=== PATIENT | male | born 1985 | race Caucasian/White ===

== ENCOUNTER → 2022-05-12 | Outpatient (CLI) | payer MEDICAID, SELFPAY ==
--- NOTE | 2022-05-12 12:50 | RAD_ITS ---
CLINICAL HISTORY: Male, 36 years old. Right shoulder pain following injury. PROCEDURE: ARTHROGRAM - RIGHT SHOULDER CONSENT: The procedure as well as the benefits and possible complications including bleeding and infection were explained to the patient. Informed consent was obtained. FLUOROSCOPY TIME (if supplied): (56 seconds) minutes/seconds Injection Information: 10 cc of dilute MRI contrast. Number of images obtained: 4 TECHNIQUE: (All elements of maximal sterile barrier technique followed, including US elements as applicable) The patient was in the supine position. The overlying skin was prepped and draped in the usual sterile fashion. Following local anesthetic application and under direct fluoroscopic guidance, a 22-gauge spinal needle was placed into the shoulder joint. 2 cc of ISOVUE-300 was injected for confirmation. Following this, 10 cc of dilute MRI contrast was injected. The patient tolerated the procedure well. MRI will follow. RAD/Arthrogram Shoulder w/ MRI IMPRESSION: Successful right shoulder arthrogram for MRI imaging. The patient tolerated the procedure well. Electronically Signed: Fredy Bernabe MD at 13:48 EDT ,
--- NOTE | 2022-05-12 13:05 | MRI_ITS ---
STUDY: MRI RIGHT SHOULDER REASON FOR EXAM: Male, 36 years old. R SHOULDER PAIN TECHNIQUE: Standardized fat and water weighted pulse sequences were obtained in all 3 orthogonal planes. COMPARISON: X-ray 12/30/2021 FINDINGS: Mild supraspinatus and infraspinatus tendinosis and peritendinitis as with a 1 x 1 cm concealed interstitial delamination tear of the distal mid supraspinatus tendon at the footprint. Normal subscapularis tendon. Normal teres minor tendon. Normal supraspinatus muscle. Normal infraspinatus muscle. Normal subscapularis muscle. Normal teres minor muscle. Normal glenohumeral articulation. There is a cortical erosion at the insertion of the infraspinatus tendon. Normal biceps labral complex. Normal intracapsular long biceps tendon. Normal labrum. Normal capsulo- ligamentous complex. Normal rotator interval. Normal acromioclavicular articulation. There is a Type II morphology (curved), with a neutral orientation. There is no subacromial-subdeltoid bursal fluid. Normal visualized coracohumeral and coracoacromial ligaments. Normal quadrilateral space. Normal axillary space. Normal deltoid muscle. Normal trapezius muscle. MRI/Upper Ext Jt Only W/Contrast IMPRESSION: Mild supraspinatus and infraspinatus tendinosis and peritendinitis as with a 1 x 1 cm concealed interstitial delamination tear of the distal mid supraspinatus tendon at the footprint. No muscular atrophy. Electronically Signed: Brannon Oreilly MD at 11:31 EDT ,
== END | disposition home or self-care (01) ==
LOC: RAD 12:08
PROVIDERS: Referring Provider Nurse Practitioner; Visit Provider Nurse Practitioner
DX: M24.811 Other specific joint derangements of right shoulder, not elsewhere classified (principal)
CPT/HCPCS: 23350; 73222; 77002; A9575; Q9967

== ENCOUNTER 2023-08-16 10:47 | Observation (INO) | payer BC, SELFPAY ==
[2023-08-16] VITALS (7 sets, daily range): BP systolic 142–173; BP diastolic 75–117; PULSE 73–86; RESP 14–18; TEMP 36.4–36.8; O2SAT 97–100; BMI 29.2; BMI 28.7
--- NOTE | 2023-08-16 11:13 | CT_ITS ---
STUDY: CT ABDOMEN AND PELVIS WITHOUT CONTRAST REASON FOR EXAM: Male, 37 years old. Right flank pain RADIATION DOSAGE (If Supplied By Facility): CTDIvol = ( 9.74 ) mGy, DLP = ( 498.62 ) mGycm TECHNIQUE: Transaxial images were obtained from the dome of the diaphragm to the symphysis pubis without oral contrast, and without intravenous contrast. Sagittal and coronal images were reconstructed. Individualized dose optimization techniques were used for this CT. COMPARISON: None. FINDINGS: Mild degree of dependent bibasilar atelectasis. The visualized portions of the heart are within normal limits. Normal liver. Normal gallbladder and extrahepatic biliary system. Normal spleen. Normal pancreas. Normal bilateral adrenal glands. Mild degree of right hydronephrosis and a right hydroureter due to a 2.9 mm calculus in the midportion of the right ureter. Normal left kidney. There is a small hiatal hernia. Normal small intestine. Normal colon. The appendix is visualized and appears normal. There is scattered atherosclerotic calcification of the abdominal aorta, without a demonstrated aneurysm. Normal inferior vena cava. Normal retroperitoneum. Normal urinary bladder. There is a small umbilical hernia containing fat. Normal osseous structures. CT/Abdomen/Pelvis without Cont IMPRESSION: 2.9 mm calculus in the midportion of right ureter causing right hydronephrosis and right hydroureter. Electronically Signed: Fredy Bernabe MD at 12:08 [facility] ,
--- NOTE | 2023-08-16 11:14 | EX.ED.DYSGE1 ---
HPI History of Present Illness Chief Complaint: Flank Pain Detail of Chief Complaint: Right flank pain Informant: patient Narrative Narrative: Patient presents emergency department with complaint of right-sided flank pain. Patient states the pain started initially last evening and was more mildly became more severe today. Pain radiates from his back. He had some urinary frequency. He denies hematuria and has had some mild dysuria this morning. Patient thinks he might be passing a kidney stone although he is never passed one before. Patient denies nausea or vomiting. He denies fever. He denies diarrhea. Currently rates pain an 8 out of 10. [facility] Medical History Arthritis Hx of compression fracture of spine Hx of fracture of pelvis Impingement syndrome of right shoulder Internal derangement of right shoulder Right shoulder strain Shoulder pain Strain of right rotator cuff capsule Tendon injury Home Medications NK 08/16/23 [History Last Taken Unknown] Allergy/AdvReac Type Severity Reaction Status Date / Time No Known Allergies Allergy Verified 08/16/23 10:47 Social History Smoking Status: Current every day smoker tobacco type: cigarettes alcohol intake: current Alcohol type: beer ROS ROS ED Review of Systems ROS Unobtainable: other Constitutional Constitutional ED: Reports lethargy; Denies chills, fever(s), sweats or weight loss Eyes Eyes: Denies blurry vision, change in vision or diplopia ENT ENT ED: Denies rhinorrhea or sore throat Cardiovascular Cardiovascular: Denies chest pain, orthopnea or racing heartbeat Respiratory/Chest Respiratory/Chest: Denies cough, dyspnea, dyspnea on exertion, orthopnea or sputum Gastrointestinal Gastrointestinal: Reports abdominal pain; Denies diarrhea, nausea or vomiting Genitourinary Genitourinary ED: Denies dysuria, hematuria or urinary frequency Musculoskeletal Musculoskeletal: Reports back pain; Denies arthralgias, myalgias or neck pain Integumentary Denies abscess, Abrasions or rash Neurologic Neurologic: Denies headache(s) or weakness Psychiatric Psychiatric: Denies anxiety, depression or suicidal thoughts Endocrine Endocrinology: Denies polydipsia, polyphagia or polyuria Hematologic/Lymphatic Hematologic/Lymphatic: Denies easy bleeding, easy bruising or lymphadenopathy Allergic/Immunologic Allergic/Immunologic ED: Denies mouth swelling, tongue swelling or urticaria EXAM Physical Exam Const Vital Signs: 08/16/23 10:48 08/16/23 13:32 08/16/23 13:38 Temperature 98.2 F Temperature Source Temporal Pulse Rate 84 73 73 Respiratory Rate 14 16 18 Blood Pressure 173/117 H 150/115 H 150/115 H Blood Pressure Mean 135 126 126 Pulse Ox 99 97 97 Oxygen Delivery Method Room Air Nasal Cannula 08/16/23 13:39 Temperature 98.2 F Temperature Source Temporal Pulse Rate 73 Respiratory Rate 18 Blood Pressure 150/115 H Blood Pressure Mean 126 Pulse Ox 97 Oxygen Delivery Method Room Air Positive well nourished and well developed General Appearance ED: well developed and NAD HEENT Reports TM's clear and moist mucous membranes normocephalic and atraumatic; Negative for trauma or tenderness Tympanic Membrane ED: Yes TM's clear Eyes PERRL and EOMs intact bilaterally General Eye ED: Negative for pale conjunctiva or scleral icterus Neck no lymphadenopathy, supple and no JVD General: Negative for tenderness Chest Wall inspection of chest normal and palpation of chest normal Chest: Negative for tenderness Resp normal respiratory effort and clear to auscultation bilaterally Effort and Inspection: Negative for respiratory distress or pain with movement Auscultation: Negative for rhonchi, wheezes or diminished lung sounds Cardio regular rate, regular rhythm, S1 normal heart sound, S2 normal heart sound and no murmurs Peripheral Pulses: pulses 2+ throughout GI normal to inspection, nondistended, normoactive bowel sounds, soft to palpation, non-distended and no masses GI Narrative: Tenderness to right lower quadrant with some guarding. He has CVA tenderness on the right. There is no rebound, rigidity, or purulent signs. No mass palpated. Back/Spine no CVA tenderness and no thoracic nor lumbar tenderness Extremity normal to inspection General Extremety ED: Negative for edema General Extremity: Negative for edema Neuro oriented x3, CN's II-XII intact bilaterally, no sensory deficits noted and gait normal Sensorium / Orientation: awake, alert, oriented to person, oriented to place and oriented to time Motor Exam: strength 5/5 throughout and strength abnormal Psych mental status grossly normal Skin no rashes or lesions noted and no wounds MDM MDM MDM Narrative Medical decision making narrative: Patient presents with severe right-sided flank pain concerning for kidney stone. Patient also complains some the dysuria. IV line established. He was medicated with Toradol as well as Zofran and Dilaudid 1 mg IV. He had good pain relief with that. CBC with differential obtained showed white count of 12.7 with hemoglobin 14.7 and platelet count of 309. Chemistries unremarkable. Urinalysis was positive for nitrites as well as 500 excite esterase and greater than 100 WBCs and +3 bacteria. Urine culture was sent. CT of the abdomen pelvis without contrast obtained showed a right-sided ureteral lithiasis that radiology felt was 2.9 mm however on my measurement was closer to 5 mm. I discussed case with urology Dr. Pro jones who also looked at the CT scan and agrees that the stone likely closer to 5 or 6 mm. We will admit patient for possible stenting tomorrow. Will start on Rocephin IV. Lab Data Attestation: I reviewed the patient's lab results. Labs: Laboratory Results - last 24 hr 08/16/23 08/16/23 11:06 12:25 WBC 12.7 H RBC 4.67 Hgb 14.7 Hct 43.5 MCV 93.1 MCH 31.5 MCHC 33.8 RDW Std Deviation 44.0 H RDW Coeff of Rani 12.9 Plt Count 309 MPV 9.9 Immature Gran % (Auto) 0.400 Neut % (Auto) 79.7 H Lymph % (Auto) 11.0 L [place] % (Auto) 7.8 Eos % (Auto) 0.7 Baso % (Auto) 0.4 Absolute Neuts (auto) 10.1 H Absolute Lymphs (auto) 1.39 Nucleated RBC % 0 Sodium 138 Potassium 3.6 Chloride 105 Carbon Dioxide 31.0 Anion Gap 2 L BUN 12 Creatinine 1.05 Estim Creat Clear Calc 94.45 Est GFR (MDRD) Af Amer 101 Est GFR (MDRD) Non-Af 83 BUN/Creatinine Ratio 11.4 Glucose 144 H Calcium 9.1 Urine Color Yellow Urine Clarity Cloudy Urine pH 6.0 Ur Specific [place] 1.020 Urine Protein 30 H Urine Glucose (UA) Normal Urine Ketones Negative Urine Occult Blood 150 H Urine Nitrite Positive H Urine Bilirubin Negative Urine Urobilinogen Normal Ur Leukocyte Esterase 500 H Urine RBC 5-10 SEEN Urine WBC >100 SEEN Ur Squamous Epith Cells 0-5 SEEN Urine Bacteria 3+ Urine Mucus 0 SEEN Radiography Diagnostic Testing: Clinical Impression(s) from Imaging Studies Abdomen/Pelvis CT 08/16/23 11:13 IMPRESSION: 2.9 mm calculus in the midportion of right ureter causing right hydronephrosis and right hydroureter. Electronically Signed: Fredy Bernabe MD at 12:08 EST , Discharge Plan Dx/Rx/DC Orders Clinical Impression: Urolithiasis, Acute UTI, Leukocytosis Disposition Disposition: Acute Care Hospital [facility]
[2023-08-16] MEDS: Ondansetron 4 MG/2 ML Vial IV (11:20)
[2023-08-16] MEDS: Ketorolac 30 MG/ML Syringe IV (11:20)
[2023-08-16] MEDS: HYDROmorphone 1 MG/ML Syringe IV ×2 (11:20→15:57)
[2023-08-16] MEDS: 0.9% Normal Saline (1000mL) 1,000 ML 1000 ML IV (11:20)
[2023-08-16 11:33] LABS: Absolute Lymphocyte Count 1.39 X10^3/uL (0.83-4.51); Absolute Neutrophil Count 10.1 X10^3/uL (2.0-7.7); Basophil# 0.05 X10^3/uL; Basophil% 0.4 % (0-1); Eosinophil# 0.09 X10^3/uL; Eosinophils% 0.7 % (0-5); Hematocrit 43.5 % (40-54); Hemoglobin 14.7 g/dL (13.0-16.5); Lymphocyte # 1.39 X10^3/ul (0.83-4.51); Mean Corp Hgb Conc 33.8 g/dL (32-36); Mean Corpuscular Hgb 31.5 pg (27.0-32.0); Mean Corpuscular Volume 93.1 fL (80-94); Mean Platelet Vol. 9.9 fl (6.2-12.0); Monocyte# 0.99 X10^3/uL; Monocyte% 7.8 % (0-10); NRBC Flagged by Analyzer 0 % (0-5); Neutrophil % 79.7 % (47-70); Platelet Count 309 K/mm3 (150-450); RBC Distribution Width CV 12.9 % (11.6-14.6); Red Blood Count 4.67 M/mm3 (4.6-6.2); White Blood Count 12.7 K/mm3 (4.4-11.0)
[2023-08-16 11:38] LABS: Anion Gap 2 (5-15); BUN 12 mg/dL (7-18); BUN/Creat Ratio 11.4 RATIO (10-20); Calcium,Total 9.1 mg/dL (8.5-10.1); Chloride 105 mmol/L (98-107); Creatinine, Serum 1.05 mg/dL (0.70-1.30); EST Glomerular Filtration Rate 83 mL/min (>60); Est Glom Filt Rate - Afr Amer 101 mL/min (>60); Estimated Creatinine Clearance 94.45 ml/min; Glucose 144 mg/dL (74-106); Potassium 3.6 mmol/L (3.5-5.1); Sodium Level 138 mmol/L (136-145)
--- OUTSIDE RECORDS SUMMARY | 2023-08-16 12:09 | XMS RPT_ITS | CCD ---
Author Name Unknown Address [address] [place] [address] Organization [facility] Care Team Providers Care Redye Hand Name Role Phone Carolin Bañueols Unavailable Unavailable Wing Issa Attending Unavailable Day Combs Attending Unavailable Sallie Curran Primary Care Provider ZANE MARIA Attending Unavailable Unavailable Primary Care Provider Unavailabl e Medications Current Medications Medication Drug Class(es) Dates Sig (Normalized) Sig (Original) acetaminophen 325 mg / HYDROcodone bitartrate 5 mg oral tablet (1 source) Opioid Agonist Start: 06-06-2019 End: 06-09-2019 take 1 tablet by mouth every four hours as needed for pain, then take 1 tablet by mouth as needed for pain HYDROcodone-acetam inophen (NORCO) 5-325 MG per tablet Indications: Closed nondisplaced fracture of middle phalanx of lesser toe of left foot, initial encounter Take 1 tablet by mouth every 4 hours as needed for Pain for up to 3 days. Intended supply: 3 days. Take lowest dose possible to manage pain 10 tablet 0 06/06/2019 06/09/2019 Active amoxicillin 875 mg oral tablet (1 source) Penicillin-class Antibacterial Start: 09-06-2022 End: 09-16-2022 take 1 tablet by mouth every twelve hours amoxicillin (AMOXIL) 875 mg tablet Indications: Toothaches , Swelling of right side of face Take 1 tablet by mouth every 12 hours for 10 days. 20 tablet 0 09/06/2022 09/16/2022 Active Completed/Discontinued Medications Medication Drug Class(es) Dates Sig (Normalized) Sig (Original) acetaminophen 325 mg / oxyCODONE hydrochloride 5 mg oral tablet (1 source) Opioid Agonist Start: 04-28-2016 End: 06-06-2019 take 1 tablet by mouth every four hours as needed for pain oxyCODONE-acetami nophen (PERCOCET) 5-325 MG per tablet Indications: Chronic midline low back pain with sciatica, sciatica laterality unspecified Take 1 tablet by mouth every 4 hours as needed for Pain 120 tablet 0 04/28/2016 06/06/2019 Discontinued (LIST CLEANUP) hydroCHLOROthiazide 25 mg / lisinopril 20 mg oral tablet (1 source) Thiazide Diuretic, Angiotensin Converting Enzyme Inhibitor Start: 03-08-2016 End: 06-06-2019 take 1 tablet by mouth once daily lisinopril-hydroc hlorothiazide (PRINZIDE;ZESTORE TIC) 20-25 MG per tablet Indications: Benign essential HTN Take 1 tablet by mouth daily 30 tablet 3 03/08/2016 06/06/2019 Discontinued ibuprofen 800 mg oral tablet (1 source) Nonsteroidal Anti-inflammatory Drug Start: 09-06-2022 take 1 tablet by mouth three times daily as needed for pain ibuprofen (MOTRIN) 800 mg tablet Indications: Toothaches , Swelling of right side of face Take 1 tablet by mouth three times daily as needed for pain. 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] Onset: 05-06-2015 05-06-2015 Chronic Other skin disorders (1 source) Localized swelling, mass and lump, head; Translations: [Swelling of right side of face] Onset: 09-06-2022 Episodic Other skin disorders (1 source) Facial swelling ; Translations: [Localized swelling, mass and lump, head] Episodic Substance-related disorders (1 source) Other stimulant abuse, uncomplicated; Translations: [F15.10 - Other stimulant abuse, uncomplicated] Onset: 12-11-2017 Chronic Unclassified (2 sources) 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 09-06-2022 19:28-0500 Body weight 88.45 kg Zane Maria MD Work Phone: [facility] 09-06-2022 19:28-0500 Diastolic blood pressure 110 mm[Hg] Zane Maria MD Work Phone: [facility] 09-06-2022 19:28-0500 Heart rate 114 /min Zane Maria MD Work Phone: [facility] 09-06-2022 19:28-0500 Respiratory rate 16 /min Zane Maria MD Work Phone: [facility] 09-06-2022 19:28-0500 SaO2% (BldA) [Mass fraction] 99 % Zane Maria MD Work Phone: [facility] 09-06-2022 19:28-0500 Systolic blood pressure 149 mm[Hg] Zane Maria MD Work Phone: [facility] 06-06-2019 09:04-0400 Body Temperature 98.71 [degF] [facility] [place] 06-06-2019 09:04-0400 BP Diastolic 101 mm[Hg] [facility] [place] 06-06-2019 09:04-0400 BP Systolic 139 mm[Hg] [facility] [place] 06-06-2019 09:04-0400 Pulse (Heart Rate) 89 /min [facility] [place] 06-06-2019 09:04-0400 Pulse Oximetry 99 % [facility]-2019 09:04-0400 Respiratory Rate 16 /min [facility] 07:53-0400 BMI (Body Mass Index) 27.72 kg/m2 [facility] 06-06-2019 07:53-0400 Body weight 83.92 kg Edison [place], [place] Encounters Encounter Date Encounter Type Care Provider Facility Start: 09-06-2022 End: 09-06-2022 ambulatory ZANE MARIA Facility:[id number] Start: 09-06-2022 End: 09-06-2022 Patient encounter procedure Zane Valerie Maria Work Phone: [facility] Procedures Date Procedure Procedure Detail Performing Clinician Start: 06-06-2019 Radex foot complete minimum 3 views Edison Osborn Work Phone: Plan of Treatment Date Care Activity Detail Author Start: 09-03-2022 DEPRESSION ASSESSMENT DEPRESSION ASSESSMENT [facility] Start: 05-04-2022 Influenza vaccination INFLUENZA (#1) [facility] Start: 05-04-2019 Influenza vaccination Flu vaccine (#1) [place], [place] Start: 2018 LIPID SCREEN LIPID SCREEN [facility] Start: 2002 DTaP/Tdap/Td vaccine (1 - Tdap) DTaP/Tdap/Td vaccine (1 - Tdap) [place], [place] Start: 2002 Urine microalbumin profile DTAP,TDAP,TD (1 - Tdap) [facility] Start: 2001 HEPATITIS C SCREENING HEPATITIS C SCREENING [facility] Start: 2001 HIV SCREENING HIV SCREENING [facility] Start: 1998 HIV screen HIV screen [place], [place] Start: 1996 Varicella Vaccine (1 of 2 - 13+ 2-dose series) Varicella Vaccine (1 of 2 - 13+ 2-dose series) [place], [place] Start: 1989 PNEUMOCOCCAL (1 - PCV) PNEUMOCOCCAL (1 - PCV) [facility] Start: 02-25-1984 COVID-19 VACCINE (#1) COVID-19 VACCINE (#1) [facility] Start: 1983 HEPATITIS B (1 of 3 - 3-dose series) HEPATITIS B (1 of 3 - 3-dose series) [facility] Payers Date Payer Category Payer Unknown [id number] 2022 Unknown TAM BLUE CARD PPO OOS [id number] 2022-Present [phone] [address] [place] [address] PPO [id number] 2017 Unknown [id number] Self-pay Unknown [id number] Unknown [id number] Social History Date Type Detail Facility Start: 06-06-2019 End: 09-06-2022 Tobacco smoking status NHIS Current every day smoker [facility] Start: 06-06-2019 [facility] intake [facility] At Not on file [facility] History of tobacco use Cigarette Smoker [facility] Start: 09-06-2022 Tobacco use and exposure User of smokeless tobacco [facility] History of tobacco use Chews Tobacco [facility] Start: 09-06-2022 Alcohol intake Ex-drinker (finding) [facility] Start: 1985 Sex Assigned At Male [facility] Progress note 09-06-2022 Note Date & Type Note Facility 09-06-2022 Note HNO ID: [id number] Author: Zane Maria MD Service: ? Author Type: Physician Type: Progress Notes Filed: 09/06/2022 8:16 PM Note Text: Lucy Clay is a 37 year old male who presents with Facial Swelling (C/O right side face swelling and pain. Started yesterday. ) HPI patient 37-year-old male who presented to the [facility] the evening with a complaint of the right facial swelling and right tooth ache the symptoms started yesterday and patient concerning coming for further evaluation treatment. History reviewed. No pertinent past medical history. There is no problem list on file for this patient. Current Outpatient Medications Medication Sig Dispense Refill amoxicillin (AMOXIL) 875 mg tablet Take 1 tablet by mouth every 12 hours for 10 days. 20 tablet 0 ibuprofen (MOTRIN) 800 mg tablet Take 1 tablet by mouth three times daily as needed for pain. 20 tablet 0 No current facility-administered medications for this visit. Social History Tobacco Use Smoking status: Every Day Types: Cigarettes Smokeless tobacco: Current Types: Chew Substance Use Topics Alcohol use: Not Currently Drug use: Never Alcohol Use: Not Currently Tobacco Use: Types: Cigarettes, Chew History reviewed. No pertinent family history. Review of Systems Constitutional: Negative for chills, fever and malaise/fatigue. Respiratory: Negative for shortness of breath. Cardiovascular: Negative for palpitations. Gastrointestinal: Negative for abdominal pain, nausea and vomiting. Neurological: Negative for headaches. BP 149/110 Pulse 114 Temp (Src) 98.5 (Oral) Resp 16 Wt 195 lb (88.5kg) SpO2 99% Physical Exam Vitals and nursing note reviewed. Constitutional: General: He is not in acute distress. Appearance: Normal appearance. HENT: Mouth/Throat: Mouth: Mucous membranes are moist. Pharynx: Oropharynx is clear. Comments: Right upper molar decay and tender with touch and right face swelling Cardiovascular: Rate and Rhythm: Regular rhythm. Heart sounds: Normal heart sounds. Pulmonary: Breath sounds: Normal breath sounds. Musculoskeletal: Cervical back: Normal range of motion and neck supple. Lymphadenopathy: Cervical: No cervical adenopathy. Neurological: Mental Status: He is alert. ASSESSMENT/PLAN: 1. Toothaches - ICD9: 525.9, ICD10: K08.89 (primary diagnosis) Complications of the disease were discussed with the patient. Start amoxicillin 875 mg 1 twice a day and ibuprofen 800 mg 1 3 times daily as needed for pain and swelling discussed side effects of the medication with the patient Instructed to follow up with dentist in 4 to 5 days for recheck - AMOXICILLIN 875 MG TABLET - IBUPROFEN 800 MG TABLET 2. Swelling of right side of face - ICD9: 784.2, ICD10: R22.0 Complications of the disease were discussed with the patient. - AMOXICILLIN 875 MG TABLET - IBUPROFEN 800 MG TABLET Zane Maria MD [facility] History of Present illness Narrative 09-06-2022 Zane Padilla MD Candace - 09/06/2022 8:13 PM EST Note Date & Type Note Facility 09-06-2022 History of Presen t illness Narrative Lucy Clay is a 37 year old male who presents with Facial Swelling (C/O right side face swelling and pain. Started yesterday. ) HPI patient 37-year-old male who presented to the [facility] the evening with a complaint of the right facial swelling and right tooth ache the symptoms started yesterday and patient concerning coming for further evaluation treatment. History reviewed. No pertinent past medical history. There is no problem list on file for this patient. Current Outpatient Medications Medication Sig Dispense Refill amoxicillin (AMOXIL) 875 mg tablet Take 1 tablet by mouth every 12 hours for 10 days. 20 tablet 0 ibuprofen (MOTRIN) 800 mg tablet Take 1 tablet by mouth three times daily as needed for pain. 20 tablet 0 No current facility-administered medications for this visit. Social History Tobacco Use Smoking status: Every Day Types: Cigarettes Smokeless tobacco: Current Types: Chew Substance Use Topics Alcohol use: Not Currently Drug use: Never Alcohol Use: Not Currently Tobacco Use: Types: Cigarettes, Chew History reviewed. No pertinent family history. Review of Systems Constitutional: Negative for chills, fever and malaise/fatigue. Respiratory: Negative for shortness of breath. Cardiovascular: Negative for palpitations. Gastrointestinal: Negative for abdominal pain, nausea and vomiting. Neurological: Negative for headaches. BP 149/110 Pulse 114 Temp (Src) 98.5 (Oral) Resp 16 Wt 195 lb (88.5kg) SpO2 99% Physical Exam Vitals and nursing note reviewed. Constitutional: General: He is not in acute distress. Appearance: Normal appearance. HENT: Mouth/Throat: Mouth: Mucous membranes are moist. Pharynx: Oropharynx is clear. Comments: Right upper molar decay and tender with touch and right face swelling Cardiovascular: Rate and Rhythm: Regular rhythm. Heart sounds: Normal heart sounds. Pulmonary: Breath sounds: Normal breath sounds. Musculoskeletal: Cervical back: Normal range of motion and neck supple. Lymphadenopathy: Cervical: No cervical adenopathy. Neurological: Mental Status: He is alert. ASSESSMENT/PLAN: 1. Toothaches - ICD9: 525.9, ICD10: K08.89 (primary diagnosis) Complications of the disease were discussed with the patient. Start amoxicillin 875 mg 1 twice a day and ibuprofen 800 mg 1 3 times daily as needed for pain and swelling discussed side effects of the medication with the patient Instructed to follow up with dentist in 4 to 5 days for recheck - AMOXICILLIN 875 MG TABLET - IBUPROFEN 800 MG TABLET 2. Swelling of right side of face - ICD9: 784.2, ICD10: R22.0 Complications of the disease were discussed with the patient. - AMOXICILLIN 875 MG TABLET - IBUPROFEN 800 MG TABLET Zane Maria MD documented in this encounter [facility] Evaluation note Note Date & Type Note Facility documented in this encounter 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 * Toe Fracture (Tanzanian) documented in this encounter Assessments Diagnosis Closed nondisplaced fracture of middle phalanx of lesser toe of left foot, initial encounter- Primary Additional Source Comments (unrecognized sect ion and content) No Status Records FoundNo Status Records FoundNo Status Records FoundNo Status Records Found INFORMATION SOURCE (unrecogn ized section and content) DATE CREATED AUTHOR AUTHOR'S ORGANIZ ATION 09/26/2018 [facility] [place] DATE CREATED AUTHOR AUTHOR'S ORGANIZ ATION 07/04/2019 [facility] DATE CREATED AUTHOR AUTHOR'S ORGANIZ ATION 09/06/2022 [facility] Reason for Visit (unrecogniz ed section and content) Reason Comments Facial Swelling C/O right side face swelling and pain. Started yesterday. Source Comments (unrecognize d section and content) In the event this informatio n is protected by the Federal Confidentiality of Alcohol and Drug Abuse Patient Records regulations: The Federal rules restrict any use of the information to criminally investigate or prosecute any alcohol or drug abuse patient.[facility] FOR RECORDS PERTAINING TO PATIENTS WHO ARE OR HAVE BEEN ENROLLED IN A CHEMICAL DEPENDENCY/SUBSTANCEABUSE PROGRAM, SOME INFORMATION MAY BE OMITTED. This clinical summary was aggregated from multiple sources. Caution should be exercised in using it in the provision of clinical care. This summary normalizes information from multiple sources, and as a consequence, information in this document may materially change the coding, format and clinical context of patient data. In addition, data may be omitted in some cases. CLINICAL DECISIONS SHOULD BE BASED ON THE PRIMARY CLINICAL RECORDS. [facility]. provides no warranty or guarantee of the accuracy or completeness of information in this document.
[2023-08-16 12:32] LABS: Mucous, Urine 0 SEEN /hpf (<or=2+)
[2023-08-16 12:35] LABS: Color, Urine Yellow (Yellow); Glucose, Dipstick Normal (Normal); Ketone-Dipstick Negative (Negative); Leukocyte Esterase-Dipstick 500 /ul (Negative); Nitrite-Dipstick Positive (Negative); Occult Blood-Urine 150 /ul (Negative); Protein-Dipstick 30 mg/dl (Negative); Urine Bilirubin Dipstick Negative (Negative); Urine Clarity Cloudy (Clear); Urine Urobilinogen Normal (Normal)
[2023-08-16 12:43] LABS: Bacteria 3+ /hpf (None Seen); White Blood Cells >100 SEEN /hpf (0-5)
[2023-08-16 12:44] LABS: Red Blood Cells-Urine 5-10 SEEN /hpf (0-5); Squamous Epithelial Cells - UA 0-5 SEEN /hpf (0-5)
[2023-08-16] MEDS: 0.9% Normal Saline (1000mL) 1,000 ML 150 ML IV ×2 (13:01→18:26)
[2023-08-16] MEDS: Ceftriaxone 1 GM/50 ML BAG IV (13:02)
--- NOTE | 2023-08-16 13:37 | PCM.HP.STD ---
HPI - General General Date of Admission: 08/16/23 Date of Service: 08/16/23 HPI Narrative LUCY CLAY, is a 37 M who presents to ER with a 5 -6 mm stone in the Right mid ureter wll admit because looks infected and risk of sepsis if no intervention add on tomorrow for a cysto right stent placement. [facility] Medical History Arthritis Hx of compression fracture of spine Hx of fracture of pelvis Impingement syndrome of right shoulder Internal derangement of right shoulder Right shoulder strain Shoulder pain Strain of right rotator cuff capsule Tendon injury Allergy/AdvReac Type Severity Reaction Status Date / Time No Known Allergies Allergy Verified 08/16/23 10:47 Social History Smoking Status: Current every day smoker tobacco type: cigarettes alcohol intake: current Alcohol type: beer ROS Constitutional Constitutional: Denies chills, fever(s) or malaise Eyes Eyes: Denies blurry vision or change in vision ENT HEENT: Reports none Cardiovascular Cardiovascular: Denies chest pain or palpitations Respiratory/Chest Respiratory/Chest: Denies cough or shortness of breath with exertion Gastrointestinal Gastrointestinal: Denies abdominal pain, constipation or diarrhea Musculoskeletal Musculoskeletal: Denies back pain, joint stiffness or joint swelling Integumentary Integumentary: Denies dry skin, jaundice, lesions or rash Neurologic Neurologic: Denies confusion, syncope or weakness Psychiatric Psychiatric: Reports none; Denies anxiety or depression Endocrine Endocrinology: Denies excessive sweating, fatigue or flushing Hematologic/Lymphatic Hematologic/Lymphatic: Denies anemia, easy bleeding or easy bruising Vital Signs Vital Signs Vital Signs: 08/16/23 10:48 08/16/23 13:32 Temperature 98.2 F Temperature Source Temporal Pulse Rate 84 73 Respiratory Rate 14 16 Blood Pressure 173/117 H 150/115 H Blood Pressure Mean 135 126 Pulse Ox 99 97 Oxygen Delivery Method Room Air Nasal Cannula Weight Weight: 89.8 kg Body Mass Index (BMI) 29.2 Physical Exam Const alert and oriented x3 General Appearance: cooperative HEENT normocephalic, head/scalp atraumatic, EAC's normal and TM's normal bilaterally Eyes PERRL and EOMs intact bilaterally Pupil: sluggish Neck no lymphadenopathy, supple and no JVD General: trachea midline Lymph Lymphatic: no lymphadenopathy noted, lymphedema and lymphadenopathy Resp normal respiratory effort, normal air movement and clear to auscultation bilaterally Cardio regular rate, regular rhythm and peripheral pulses 2+ throughout GI soft to palpation, non-tender and non-distended Extremity normal capillary refill and no clubbing, cyanosis or edema General Extremity: no tenderness to palpation of joints or extremities Skin no rashes or lesions noted General Skin Exam: turgor normal Lesions: no lesions Rashes: no rashes Neuro CN's II-XII intact bilaterally Speech: speech normal Motor Exam: strength 5/5 throughout; Negative for general weakness Psych thought process normal, cooperative and affect normal Appearance: appropriate Results Lab / Micro Data 08/16/23 11:06 08/16/23 11:06 Labs: Laboratory Results - last 24 hr 08/16/23 11:06: WBC 12.7 H, RBC 4.67, Hgb 14.7, Hct 43.5, MCV 93.1, MCH 31.5, MCHC 33.8, RDW Std Deviation 44.0 H, RDW Coeff of Rani 12.9, Plt Count 309, MPV 9.9, Immature Gran % (Auto) 0.400, Neut % (Auto) 79.7 H, Lymph % (Auto) 11.0 L, Stewart % (Auto) 7.8, Eos % (Auto) 0.7, Baso % (Auto) 0.4, Absolute Neuts (auto) 10.1 H, Absolute Lymphs (auto) 1.39, Nucleated RBC % 0, Sodium 138, Potassium 3.6, Chloride 105, Carbon Dioxide 31.0, Anion Gap 2 L, BUN 12, Creatinine 1.05, Estim Creat Clear Calc 94.45, Est GFR (MDRD) Af Amer 101, Est GFR (MDRD) Non-Af 83, BUN/Creatinine Ratio 11.4, Glucose 144 H, Calcium 9.1 08/16/23 12:25: Urine Color Yellow, Urine Clarity Cloudy, Urine pH 6.0, Ur Specific [place] 1.020, Urine Protein 30 H, Urine Glucose (UA) Normal, Urine Ketones Negative, Urine Occult Blood 150 H, Urine Nitrite Positive H, Urine Bilirubin Negative, Urine Urobilinogen Normal, Ur Leukocyte Esterase 500 H, Urine RBC 5-10 SEEN, Urine WBC >100 SEEN, Ur Squamous Epith Cells 0-5 SEEN, Urine Bacteria 3+, Urine Mucus 0 SEEN Imagaing Radiology Impression Abdomen/Pelvis CT 08/16/23 11:13 IMPRESSION: 2.9 mm calculus in the midportion of right ureter causing right hydronephrosis and right hydroureter. Electronically Signed: Fredy Bernabe MD at 12:08 EST , Assessment & Plan Assessment/Plan (1) Urolithiasis: PLAN: check KUB (2) Acute UTI: PLAN: plan for Right cysto and stent placement tomorrow (3) Leukocytosis:
--- OUTSIDE RECORDS SUMMARY | 2023-08-16 16:58 | XMS RPT_ITS | CCD ---
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 Onset: 04-20-2018 Past or Other Problems Problem Classification Problem Date Documented Da te Episodic/Chronic Spondylosis; intervertebral disc disorders; other back problems (1 source) Low back pain; Translations: [Lumbago] Onset: 05-06-2015 05-06-2015 Episodic Results Test Name Value Interpretation Reference Range Facil ity Vital Signs Date Time Vital Sign Value Performing Clinician Facility 09-06-2022 19:28-0500 Body temperature 98.49 [degF] Zane Maria MD Work Phone: [facility] 09-06-2022 19:28-0500 Body weight 88.45 kg Zane Maria MD Work Phone: [facility] 09-06-2022 19:28-0500 Diastolic blood pressure 110 mm[Hg] Zane Maria MD Work Phone: [facility] 09-06-2022 19:28-0500 Heart rate 114 /min Zane Maria MD Work Phone: [facility] 09-06-2022 19:28-0500 Respiratory rate 16 /min Zane Maria MD Work Phone: [facility] 09-06-2022 19:28-0500 SaO2% (BldA) [Mass fraction] 99 % Zane Maria MD Work Phone: [facility] 09-06-2022 19:28-0500 Systolic blood pressure 149 mm[Hg] Zane Maria MD Work Phone: [facility] 06-06-2019 09:04-0400 Body Temperature 98.71 [degF] [facility] 06-06-2019 09:04-0400 BP Diastolic 101 mm[Hg] [facility] [place] 06-06-2019 09:04-0400 BP Systolic 139 mm[Hg] [facility] [place] 06-06-2019 09:04-0400 Pulse (Heart Rate) 89 /min [facility] 06-06-2019 09:04-0400 Pulse Oximetry 99 % [facility] 06-06-2019 09:04-0400 Respiratory Rate 16 /min [facility] 06-06-2019 07:53-0400 BMI (Body Mass Index) 27.72 kg/m2 Edison [facility] [place] 06-06-2019 07:53-0400 Body weight 83.92 kg Edison [place], [place] Encounters Encounter Date Encounter Type Care Provider Facility Start: 09-06-2022 End: 09-06-2022 ambulatory ZANE MARIA Facility:[id number] Start: 09-06-2022 End: 09-06-2022 Patient encounter procedure Zane Valerie Maria Work Phone: [facility] Procedures Date Procedure Procedure Detail Performing Clinician Start: 06-06-2019 Radex foot complete minimum 3 views Edison Osborn Work Phone: Plan of Treatment Date Care Activity Detail Author Start: 09-03-2022 DEPRESSION ASSESSMENT DEPRESSION ASSESSMENT [facility] Start: 05-04-2022 Influenza vaccination INFLUENZA (#1) [facility] Start: 05-04-2019 Influenza vaccination Flu vaccine (#1) [place], [place] Start: 2018 LIPID SCREEN LIPID SCREEN [facility] Start: 2002 DTaP/Tdap/Td vaccine (1 - Tdap) DTaP/Tdap/Td vaccine (1 - Tdap) [place], [place] Start: 2002 Urine microalbumin profile DTAP,TDAP,TD (1 - Tdap) [facility] Start: 2001 HEPATITIS C SCREENING HEPATITIS C SCREENING [facility] Start: 2001 HIV SCREENING HIV SCREENING [facility] Start: 1998 HIV screen HIV screen [place], [place] Start: 1996 Varicella Vaccine (1 of 2 - 13+ 2-dose series) Varicella Vaccine (1 of 2 - 13+ 2-dose series) [place], [place] Start: 1989 PNEUMOCOCCAL (1 - PCV) PNEUMOCOCCAL (1 - PCV) [facility] Start: 02-25-1984 COVID-19 VACCINE (#1) COVID-19 VACCINE (#1) [facility] Start: 1983 HEPATITIS B (1 of 3 - 3-dose series) HEPATITIS B (1 of 3 - 3-dose series) [facility] Payers Date Payer Category Payer Unknown [id number] 2022 Unknown TAM BLUE CARD PPO OOS [id number] 2022-Present [phone] [address] [place] [address] PPO [id number] 2017 Unknown [id number] Self-pay Unknown [id number] Unknown [id number] Social History Date Type Detail Facility Start: 06-06-2019 End: 09-06-2022 Tobacco smoking status NHIS Current every day smoker [facility] Start: 06-06-2019 Alcohol intake [facility] Sex Assigned At Not on file [facility] History of tobacco use Cigarette Smoker [facility] Start: 09-06-2022 Tobacco use and exposure User of smokeless tobacco [facility] History of tobacco use Chews Tobacco [facility] Start: 09-06-2022 Alcohol intake Ex-drinker (finding) [facility] Start: 1985 Sex Assigned At Male [facility] Progress note 09-06-2022 Note Date & Type Note Facility 09-06-2022 Note HNO ID: [id number] Author: Zane Maria MD Service: ? Author [...] IBUPROFEN 800 MG TABLET Zane Maria MD [facility] History of Present illness Narrative 09-06-2022 Zane [...] Zane Maria MD documented in this encounter [facility] Evaluation note Note Date & Type Note Facility documented in this encounter [facility] Summary Purpose Family History No Family History Records FoundNo Family History Records FoundNo Family History Records FoundNo Family History Records Found Advance Directives Documents on File Type Date Recorded Patient Candy Roller Expl anation Advance Directives and Living Will Power of Senior Sustainability Consultant Discharge Instructions * Attachments The following attachments cannot be sent through Care Everywhere. * Toe Fracture (Dominican) documented in this encounter Assessments Diagnosis Closed nondisplaced fracture of middle phalanx of lesser toe of left foot, initial encounter- Primary Additional Source Comments (unrecognized sect ion and content) No Status Records FoundNo Status Records FoundNo Status Records FoundNo Status Records Found INFORMATION SOURCE (unrecogn ized section and content) DATE CREATED AUTHOR AUTHOR'S ORGANIZ ATION 09/26/2018 [facility] Mara ntcole [place] DATE CREATED AUTHOR AUTHOR'S ORGANIZ ATION 07/04/2019 [facility] DATE CREATED AUTHOR AUTHOR'S ORGANIZ ATION 09/06/2022 [facility] Reason for Visit (unrecogniz [...] or prosecute any alcohol or drug abuse patient.[facility] FOR RECORDS PERTAINING TO PATIENTS WHO [...] BE BASED ON THE PRIMARY CLINICAL RECORDS. [facility]. provides no warranty or guarantee of the accuracy or completeness of information in this document.
[2023-08-16] MEDS: 0.9% Normal Saline (1000mL) 1,000 ML 50 ML IV (19:55)
--- OUTSIDE RECORDS SUMMARY | 2023-08-16 20:01 | XMS RPT_ITS | CCD ---
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 Onset: 04-20-2018 Past or Other Problems Problem Classification Problem Date Documented Da te Episodic/Chronic Spondylosis; intervertebral disc disorders; other back problems (1 source) Low back pain; Translations: [Lumbago] Onset: 05-06-2015 05-06-2015 Episodic Results Test Name Value Interpretation Reference Range Facil ity Vital Signs Date Time Vital Sign Value Performing Clinician Facility 09-06-2022 19:28-0500 Body temperature 98.49 [degF] Zane Maria MD Work Phone: [facility] 09-06-2022 19:28-0500 Body weight 88.45 kg Zane Maria MD Work Phone: [facility] 09-06-2022 19:28-0500 Diastolic blood pressure 110 mm[Hg] Zane Maria MD Work Phone: [facility] 09-06-2022 19:28-0500 Heart rate 114 /min Zane Maria MD Work Phone: [facility] 09-06-2022 19:28-0500 Respiratory rate 16 /min Zane Maria MD Work Phone: [facility] 09-06-2022 19:28-0500 SaO2% (BldA) [Mass fraction] 99 % Zane Maria MD Work Phone: [facility] 09-06-2022 19:28-0500 Systolic blood pressure 149 mm[Hg] Zane Maria MD Work Phone: [facility] 06-06-2019 09:04-0400 Body Temperature 98.71 [degF] [facility] 06-06-2019 09:04-0400 BP Diastolic 101 mm[Hg] [facility] [place] 06-06-2019 09:04-0400 BP Systolic 139 mm[Hg] [facility] [place] 06-06-2019 09:04-0400 Pulse (Heart Rate) 89 /min [facility] 06-06-2019 09:04-0400 Pulse Oximetry 99 % [facility] 06-06-2019 09:04-0400 Respiratory Rate 16 /min [facility] 06-06-2019 07:53-0400 BMI (Body Mass Index) 27.72 kg/m2 [facility] [place] 06-06-2019 07:53-0400 Body weight 83.92 kg Edison [place], [place] Encounters Encounter Date Encounter Type Care Provider Facility Start: 09-06-2022 End: 09-06-2022 ambulatory ZANE MARIA Facility:[id number] Start: 09-06-2022 End: 09-06-2022 Patient encounter procedure Zane Valerie Maria Work Phone: [facility] Procedures Date Procedure Procedure Detail Performing Clinician Start: 06-06-2019 Radex foot complete minimum 3 views Edison Osborn Work Phone: Plan of Treatment Date Care Activity Detail Author Start: 09-03-2022 DEPRESSION ASSESSMENT DEPRESSION ASSESSMENT [facility] Start: 05-04-2022 Influenza vaccination INFLUENZA (#1) [facility] Start: 05-04-2019 Influenza vaccination Flu vaccine (#1) [place], [place] Start: 2018 LIPID SCREEN LIPID SCREEN [facility] Start: 2002 DTaP/Tdap/Td vaccine (1 - Tdap) DTaP/Tdap/Td vaccine (1 - Tdap) [place], [place] Start: 2002 Urine microalbumin profile DTAP,TDAP,TD (1 - Tdap) [facility] Start: 2001 HEPATITIS C SCREENING HEPATITIS C SCREENING [facility] Start: 2001 HIV SCREENING HIV SCREENING [facility] Start: 1998 HIV screen HIV screen [place], [place] Start: 1996 Varicella Vaccine (1 of 2 - 13+ 2-dose series) Varicella Vaccine (1 of 2 - 13+ 2-dose series) [place], [place] Start: 1989 PNEUMOCOCCAL (1 - PCV) PNEUMOCOCCAL (1 - PCV) [facility] Start: 02-25-1984 COVID-19 VACCINE (#1) COVID-19 VACCINE (#1) [facility] Start: 1983 HEPATITIS B (1 of 3 - 3-dose series) HEPATITIS B (1 of 3 - 3-dose series) [facility] Payers Date Payer Category Payer Unknown [id number] 2022 Unknown TAM BLUE CARD PPO OOS [id number] 2022-Present [phone] [address] [place] [address] PPO [id number] 2017 Unknown [id number] Self-pay Unknown [id number] Unknown [id number] Social History Date Type Detail Facility Start: 06-06-2019 End: 09-06-2022 Tobacco smoking status NHIS Current every day smoker [facility] Start: 06-06-2019 Alcohol intake [facility] Sex Assigned At Not on file [facility] History of tobacco use Cigarette Smoker [facility] Start: 09-06-2022 Tobacco use and exposure User of smokeless tobacco [facility] History of tobacco use Chews Tobacco [facility] Start: 09-06-2022 Alcohol intake Ex-drinker (finding) [facility] Start: 1985 Sex Assigned At Male [facility] Progress note 09-06-2022 Note Date & Type Note Facility 09-06-2022 Note HNO ID: [id number] Author: Zane Maria MD Service: ? Author [...] IBUPROFEN 800 MG TABLET Zane Maria MD [facility] History of Present illness Narrative 09-06-2022 Zane [...] Zane Maria MD documented in this encounter [facility] Evaluation note Note Date & Type Note Facility documented in this encounter [facility] Summary Purpose Family History No Family History Records FoundNo Family History Records FoundNo Family History Records FoundNo Family History Records Found Advance Directives Documents on File Type Date Recorded Patient Laster Hand Expl anation Advance Directives and Living Will Power of Trimming Press Operator Discharge Instructions * Attachments The following attachments cannot be sent through Care Everywhere. * Toe Fracture (Filipino) documented in this encounter Assessments Diagnosis Closed nondisplaced fracture of middle phalanx of lesser toe of left foot, initial encounter- Primary Additional Source Comments (unrecognized sect ion and content) No Status Records FoundNo Status Records FoundNo Status Records FoundNo Status Records Found INFORMATION SOURCE (unrecogn ized section and content) DATE CREATED AUTHOR AUTHOR'S ORGANIZ ATION 09/26/2018 [facility] Mara ntcole [place] DATE CREATED AUTHOR AUTHOR'S ORGANIZ ATION 07/04/2019 [facility] DATE CREATED AUTHOR AUTHOR'S ORGANIZ ATION 09/06/2022 [facility] Reason for Visit (unrecogniz [...] or prosecute any alcohol or drug abuse patient.[facility] FOR RECORDS PERTAINING TO PATIENTS WHO ARE [...] BE BASED ON THE PRIMARY CLINICAL RECORDS. [facility] [employer] [facility]. provides no warranty or guarantee of the accuracy or completeness of information in this document.
--- OUTSIDE RECORDS SUMMARY | 2023-08-16 20:01 | XMS RPT_ITS | CCD ---
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 Onset: 04-20-2018 Past or Other Problems Problem Classification Problem Date Documented Da te Episodic/Chronic Spondylosis; intervertebral disc disorders; other back problems (1 source) Low back pain; Translations: [Lumbago] Onset: 05-06-2015 05-06-2015 Episodic Results Test Name Value Interpretation Reference Range Facil ity Vital Signs Date Time Vital Sign Value Performing Clinician Facility 09-06-2022 19:28-0500 Body temperature 98.49 [degF] Zane Maria MD Work Phone: [facility] 09-06-2022 19:28-0500 Body weight 88.45 kg Zane Maria MD Work Phone: [facility] 09-06-2022 19:28-0500 Diastolic blood pressure 110 mm[Hg] Zane Maria MD Work Phone: [facility] 09-06-2022 19:28-0500 Heart rate 114 /min Zane Maria MD Work Phone: [facility] 09-06-2022 19:28-0500 Respiratory rate 16 /min Zane Maria MD Work Phone: [facility] 09-06-2022 19:28-0500 SaO2% (BldA) [Mass fraction] 99 % Zane Maria MD Work Phone: [facility] 09-06-2022 19:28-0500 Systolic blood pressure 149 mm[Hg] Zane Maria MD Work Phone: [facility] 06-06-2019 09:04-0400 Body Temperature 98.71 [degF] [facility], [place] 06-06-2019 09:04-0400 BP Diastolic 101 mm[Hg] [facility] , [place] 06-06-2019 09:04-0400 BP Systolic 139 mm[Hg] [facility] [place] 06-06-2019 09:04-0400 Pulse (Heart Rate) 89 /min [facility], [place] 06-06-2019 09:04-0400 Pulse Oximetry 99 % [facility] [place] 06-06-2019 09:04-0400 Respiratory Rate 16 /min [facility] 06-06-2019 07:53-0400 BMI (Body Mass Index) 27.72 kg/m2 Edison [facility] [place] 06-06-2019 07:53-0400 Body weight 83.92 kg Edison [place], [place] Encounters Encounter Date Encounter Type Care Provider Facility Start: 09-06-2022 End: 09-06-2022 ambulatory ZANE MARIA Facility:[id number] Start: 09-06-2022 End: 09-06-2022 Patient encounter procedure Zane Valerie Maria Work Phone: [facility] Procedures Date Procedure Procedure Detail Performing Clinician Start: 06-06-2019 Radex foot complete minimum 3 views Edison Osborn Work Phone: Plan of Treatment Date Care Activity Detail Author Start: 09-03-2022 DEPRESSION ASSESSMENT DEPRESSION ASSESSMENT [facility] Start: 05-04-2022 Influenza vaccination INFLUENZA (#1) [facility] Start: 05-04-2019 Influenza vaccination Flu vaccine (#1) [place], [place] Start: 2018 LIPID SCREEN LIPID SCREEN [facility] Start: 2002 DTaP/Tdap/Td vaccine (1 - Tdap) DTaP/Tdap/Td vaccine (1 - Tdap) [place], [place] Start: 2002 Urine microalbumin profile DTAP,TDAP,TD (1 - Tdap) [facility] Start: 2001 HEPATITIS C SCREENING HEPATITIS C SCREENING [facility] Start: 2001 HIV SCREENING HIV SCREENING [facility] Start: 1998 HIV screen HIV screen [place], [place] Start: 1996 Varicella Vaccine (1 of 2 - 13+ 2-dose series) Varicella Vaccine (1 of 2 - 13+ 2-dose series) [place], [place] Start: 1989 PNEUMOCOCCAL (1 - PCV) PNEUMOCOCCAL (1 - PCV) [facility] Start: 02-25-1984 COVID-19 VACCINE (#1) COVID-19 VACCINE (#1) [facility] Start: 1983 HEPATITIS B (1 of 3 - 3-dose series) HEPATITIS B (1 of 3 - 3-dose series) [facility] Payers Date Payer Category Payer Unknown [id number] 2022 Unknown TAM BLUE CARD PPO OOS [id number] 2022-Present [phone] [address] [place] [address] PPO [id number] 2017 Unknown [id number] Self-pay Unknown [id number] Unknown [id number] Social History Date Type Detail Facility Start: 06-06-2019 End: 09-06-2022 Tobacco smoking status NHIS Current every day smoker [facility] Start: 06-06-2019 Alcohol intake No [facility] Assigned At Not on file [facility] History of tobacco use Cigarette Smoker [facility] Start: 09-06-2022 Tobacco use and exposure User of smokeless tobacco [facility] History of tobacco use Chews Tobacco [facility] Start: 09-06-2022 Alcohol intake Ex-drinker (finding) [facility] Start: 1985 Sex Assigned At Male [facility] Progress note 09-06-2022 Note Date & Type Note Facility 09-06-2022 Note HNO ID: [id number] Author: Zane Maria MD Service: ? Author [...] Zane Maria MD 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 [facility] [employer] [facility]. provides no warranty or guarantee of the accuracy or completeness of information in this document.
[2023-08-16] MEDS: Ketorolac 15 MG/ML Vial IV (20:04)
[2023-08-16] MEDS: 0.9% Saline Lock 10 ML Syringe IV ×2 (20:04→21:43)
[2023-08-16] MEDS: Morphine 2 MG/ML Syringe IV (21:43)
[2023-08-16] MEDS: Cefazolin 1 GM/50 ML BAG IV (21:46)
[2023-08-17] VITALS (11 sets, daily range): BP systolic 143–164; BP diastolic 102–120; PULSE 92–116; RESP 12–20; TEMP 36.8–37.9; O2SAT 95–100
[2023-08-17] MEDS: Ketorolac 15 MG/ML Vial IV ×3 (05:14→19:34)
[2023-08-17] MEDS: Cefazolin 1 GM/50 ML BAG IV ×2 (05:15→13:39)
[2023-08-17 06:41] LABS: Absolute Lymphocyte Count 1.14 X10^3/uL (0.83-4.51); Absolute Neutrophil Count 9.8 X10^3/uL (2.0-7.7); Basophil# 0.05 X10^3/uL; Basophil% 0.4 % (0-1); Eosinophil# 0.19 X10^3/uL; Eosinophils% 1.6 % (0-5); Hematocrit 40.5 % (40-54); Hemoglobin 13.6 g/dL (13.0-16.5); Lymphocyte # 1.14 X10^3/ul (0.83-4.51); Lymphocyte % 9.3 % (19-41); Mean Corp Hgb Conc 33.6 g/dL (32-36); Mean Corpuscular Hgb 31.8 pg (27.0-32.0); Mean Corpuscular Volume 94.6 fL (80-94); Mean Platelet Vol. 9.8 fl (6.2-12.0); Monocyte# 0.94 X10^3/uL; Monocyte% 7.7 % (0-10); NRBC Flagged by Analyzer 0 % (0-5); Neutrophil # 9.81 X10^3/uL (2.7-7.7); Neutrophil % 80.4 % (47-70); Platelet Count 271 K/mm3 (150-450); RBC Distribution Width CV 12.9 % (11.6-14.6); RBC Distribution Width SD 44.4 fl (35.1-43.9); Red Blood Count 4.28 M/mm3 (4.6-6.2); White Blood Count 12.2 K/mm3 (4.4-11.0)
[2023-08-17 07:03] LABS: Anion Gap 2 (5-15); BUN 9 mg/dL (7-18); BUN/Creat Ratio 9.5 RATIO (10-20); Calcium,Total 8.3 mg/dL (8.5-10.1); Chloride 105 mmol/L (98-107); Creatinine, Serum 0.95 mg/dL (0.70-1.30); EST Glomerular Filtration Rate 94 mL/min (>60); Est Glom Filt Rate - Afr Amer 113 mL/min (>60); Glucose 112 mg/dL (74-106); Potassium 4.1 mmol/L (3.5-5.1); Sodium Level 138 mmol/L (136-145)
[2023-08-17] MEDS: Morphine 2 MG/ML Syringe IV ×2 (08:38→18:45)
--- NOTE | 2023-08-17 10:20 | RAD_ITS ---
STUDY: X-RAY - ABDOMEN/PELVIS REASON FOR EXAM: Male, 37 years old. kidney stone placement TECHNIQUE: Single AP view of the abdomen / pelvis. COMPARISON: CT 08/16/2023 FINDINGS: Normal visualized lung bases. There is an unremarkable bowel gas pattern. The visualized liver, spleen and kidneys are grossly normal in size and morphology. No change in 3 mm calcific opacity projecting over the right transverse process of L4 consistent with a right ureteral stone. Normal soft tissue structures. Normal visualized osseous structures. RAD/Abdomen Single View (Portable) IMPRESSION: No change in 3 mm right ureteral stone. Electronically Signed: Brannon Oreilly MD at 17:16 EST ,
[2023-08-17] MEDS: 0.9% Normal Saline (1000mL) 1,000 ML 50 ML IV (13:41)
[2023-08-17] MEDS: Lactated Ringers 1,000 ML 15 ML IV (16:45)
--- NOTE | 2023-08-17 16:55 | DCINST_ITS ---
Discharge Instructions Diet Discharge Diet: No restrictions Activity Discharge Activity: Return to Normal Activity and May Not Drive (while taking narcotic pain medications.) Dressing / Incision Call your doctor if you observe: Fever of 101 or Higher Follow Up Care Please Follow Up With: Marcell Stallworth MD When: Call [phone] for an appointment Test Results: Test results from this visit will be discussed in further detail at your follow- up appointment, if applicable. Discharge Plan Admission Admit Date/Time: 08/16/23 18:32 Primary Reason for Your Visit: stone Attending Provider: Marcell Stallworth Primary Care Provider: Care Physician,No Primary Discharge Orders/Prescriptions Prescriptions: New oxycodone 5 mg tablet 5 mg PO Q6H PRN (Reason: pain) 7 Days Qty: 14 0RF ciprofloxacin HCl 500 mg tablet 500 mg PO BID Qty: 14 0RF tamsulosin [Flomax] 0.4 mg capsule 0.4 mg PO QHS Qty: 10 0RF phenazopyridine [Pyridium] 100 mg tablet 100 mg PO TID Qty: 15 0RF Referrals / Follow Up: Care Physician,No Primary [Primary Care Provider] - Disposition Discharge Orders: Discharge Patient (Routine); Ordered 08/17/23 Ordered By: Dr. Marcell Stallworth
--- NOTE | 2023-08-17 17:44 | PCM.OPRPT ---
Report of Operation Date of Procedure: 08/17/23 Pre-Operative Diagnosis: Right ureteral calculi Post-Operative Diagnosis: The same Surgery/Procedure Performed:: Cystoscopy, right retrograde pyelogram, intraoperative fluoroscopic images, right ureteroscopy laser lithotripsy of stone in the ureter and right stent placement Description of Surgical Findings:: This is a patient who presents to the hospital for treatment for an obstructing ureter calculi. I discussed with the patient how the surgery would be performed and we reviewed the risks and benefits of the surgery. The risk and benefits include the risk of failure to remove the stone completely and that the patient may need multiple procedures. We discussed the risk of an infection, the risk of bleeding. We discussed the very rare risk of serious complicated injury to the ureter. The patient understands that if the stone is not able to be removed safely that we may abort the procedure and place a stent. After full discussion and all questions address with the patient the consent form was signed the side was marked appropriately and the patient was taken back to the operating room for the procedure. The patient was taken back to the operating room. After induction of anesthesia by the anesthesiology team the patient was placed in dorsolithotomy position. The genitals were prepped and draped in usual sterile fashion. I went into the bladder with a 21 Hungarian rigid cystourethroscope through the urethra. Upon entering the bladder I inspected the trigone the left and right ureteral orifice and the bladder itself. I then cannulated the right ureteral orifice and advanced a 0.038 Glidewire up into the kidney. Then over the Glidewire I advanced a 5 Fr Ureteral catheter and performed a retrograde pyelogram with about 10cc of contrast, to delineate the anatomy and identify the stone location. Then a ureteral balloon dilator was advanced over the wire and the distal ureter was balloon dilated with a 12 Fr x 5cm balloon dilator. After 3 minutes of dilating the ureter the balloon was backloaded off the 0.038 glidewire over the 0.038 guidewire I went in with the flexible 7.5fr ureteroscope. I was able to go inside with the 7.5Fr utereroscope and I pulled out the guidewire and then through the ureteroscope I engage the stone with laser lithotripsy using a 270miron laser fiber with energy setting of 6 Hertz and 0.6 J until the stone was lasered into tiny little pieces that should pass on their own. A retrograde pyelogram was performed with 10cc of contrast and no extravasation of contrast or perforation was identified in the ureter there was some mild irritation of the ureter where the stone was located. I then backed out of the ureter left the wire in place and then over the 0.038 guidewire I placed a double coiled pigtail ureteral stent. The ureteral stent was advanced over the 0.038 guidewire under direct fluoroscopic guidance and direct cystoscopic visual guidance, once the stent was in good position I pulled the wire and the stent coiled in the kidney and bladder in good position. I then drained the patient's bladder and the cystoscope was removed and the patient was taken back to the recovery room in good position. The patient was given discharge instructions to call the office for instructions on when to come to the office to have the stent removed. Surgeon: Marcell Stallworth Type of Anesthesia: General Drains: right stent Estimated Blood Loss (mL): 0 Admit VTE Documentation VTE Present on Admission: No VTE Mechan Device Prophylaxis: SCD's VTE Pharm Prophylaxis ordered?: No
[2023-08-17] MEDS: oxyCODONE 5 MG Tablet PO (19:19)
[2023-08-17] MEDS: 0.9% Saline Lock 10 ML Syringe IV (19:19)
[2023-08-17] MEDS: hydrALAZINE 20 MG/ML Vial 10 MG IV (19:20)
[2023-08-17] MEDS: Phenazopyridine 95 MG Tablet PO (19:49)
== END 2023-08-17 20:13 | disposition home or self-care (01) ==
LOC: ED 14:02 → MS3 19:45
PROVIDERS: Admitting Provider Urology; Emergency Provider Emergency Medicine; Visit Provider Urology
PROC: (CPT 52356; principal; 2023-08-17 16:10)
DX: N13.6 Pyonephrosis (principal); R35.0 Frequency of micturition; F17.210 Nicotine dependence, cigarettes, uncomplicated; M19.90 Unspecified osteoarthritis, unspecified site
CPT/HCPCS: 52356; 00918; 36415; 74018; 74176; 76000; 80048; 81001; 85025; 96361; 96365; 96366; 96367; 96375; 96376; 99221; 99285; J7030; J7120; A4216; C1769; C2617; G0378; J2405

== ENCOUNTER 2023-08-18 07:40 | Observation (INO) | payer BC, SELFPAY ==
[2023-08-18 07:42] VITALS: BP 183/128; PULSE 96; RESP 20; TEMP 36.6; O2SAT 100; BMI 28.7
--- NOTE | 2023-08-18 07:52 | ED.VIS.GI ---
HPI HPI - GI History of Present Illness Chief Complaint: Flank Pain Informant: patient and spouse/S.O. Narrative Narrative: Patient presenting with pain that is out of control in the right upper quadrant/right flank related to a kidney stone that was infected that he had operation on overnight. Urology took him to the OR and placed a stent and performed laser lithotripsy of what appeared to be a 5-6 mm right mid ureteral stone. Discharged with prescription for ciprofloxacin which he has not been able to start yet, as well as oxycodone which is not touching his pain. He has had some hematuria with clots but no retention, it has cleared some and he is able to urinate. Urinating hurts much worse. Pain is not in his back, mostly in his right side and upper quadrant. No fevers or chills. PFSH PFSH Medical History Arthritis Hx of compression fracture of spine Hx of fracture of pelvis Impingement syndrome of right shoulder Internal derangement of right shoulder Right shoulder strain Shoulder pain Strain of right rotator cuff capsule Tendon injury Home Medications ciprofloxacin HCl 500 mg tablet (Cipro) 500 mg PO BID #14 tabs 08/17/23 [Rx Last Taken Unknown] oxycodone 5 mg tablet 5 mg PO Q6H PRN pain 7 days #14 tabs 08/17/23 [Rx Last Taken Unknown] phenazopyridine 100 mg tablet (Pyridium) 100 mg PO TID #15 tabs 08/17/23 [Rx Last Taken Unknown] tamsulosin 0.4 mg capsule (Flomax) 0.4 mg PO QHS #10 caps 08/17/23 [Rx Last Taken Unknown] Allergy/AdvReac Type Severity Reaction Status Date / Time No Known Allergies Allergy Verified 08/18/23 07:44 Social History Smoking Status: Current every day smoker tobacco type: cigarettes alcohol intake: current Alcohol type: beer ROS ROS ED Constitutional Constitutional ED: Denies chills or fever(s) Eyes Eyes: Denies change in vision or diplopia ENT ENT ED: Denies rhinorrhea or sore throat Cardiovascular Cardiovascular: Denies chest pain or palpitations Respiratory/Chest Respiratory/Chest: Denies cough or dyspnea Gastrointestinal Gastrointestinal: Reports abdominal pain and nausea; Denies diarrhea or vomiting Genitourinary Genitourinary ED: Reports as per HPI, dysuria, flank pain and hematuria Musculoskeletal Musculoskeletal: Denies back pain or neck pain Integumentary Denies abscess or rash Neurologic Neurologic: Denies headache(s), paresthesias or weakness Psychiatric Psychiatric: Denies anxiety or suicidal thoughts EXAM Physical Exam Const Vital Signs: 08/18/23 07:42 Temperature 97.9 F Temperature Source Temporal Pulse Rate 96 Respiratory Rate 20 H Blood Pressure 183/128 H Blood Pressure Mean 146 Pulse Ox 100 Oxygen Delivery Method Room Air Positive well nourished and well developed Constitutional Narrative: Mild painful distress General Appearance ED: well developed HEENT Reports moist mucous membranes normocephalic and atraumatic Eyes PERRL and EOMs intact bilaterally Neck full ROM and supple Resp normal respiratory effort and clear to auscultation bilaterally Cardio regular rate, regular rhythm and no murmurs Rate: Negative for tachycardic GI non-distended GI Narrative: Tender right upper quadrant no guarding or rebound Auscultation: normoactive bowel sounds Palpation: soft Back/Spine no CVA tenderness General Back: other FROM Extremity normal to inspection General Extremety ED: Negative for edema, pulses abnormal or tenderness General Extremity: Negative for edema or pulses abnormal Neuro oriented x3, CN's II-XII intact bilaterally and no sensory deficits noted Sensorium / Orientation: awake and alert Motor Exam: strength 5/5 throughout Psych Mood & Affect: anxious Skin no rashes or lesions noted and no wounds MDM MDM MDM Narrative Medical decision making narrative: In addition to analgesia, patient was given Rocephin 1 g. Labs noted, leukocytosis a little higher, no sign of SKYE. He is doing better after the pain medication but still in pain, and concerned about going home and using the oxycodone which was not helping at all. He does not recall having passed any pieces of stone that he could tell, spouse saying same thing as she was checking the toilet. Discussed with his urologist for admission. Obtained KUB, 1 view on my interpretation shows good placement right ureteral stent. History & Record Review Additional record(s) reviewed:: Prior inpatient record, Prior ED visit and Prior labs (No micro results yet) Lab Data Attestation: I reviewed the patient's lab results. Labs: Laboratory Results - last 24 hr 08/18/23 07:45 WBC 13.8 H RBC 4.31 L Hgb 13.6 Hct 40.5 MCV 94.0 MCH 31.6 MCHC 33.6 RDW Std Deviation 44.1 H RDW Coeff of Rani 12.7 Plt Count 268 MPV 9.7 Immature Gran % (Auto) 0.400 Neut % (Auto) 79.4 H Lymph % (Auto) 10.5 L [place] % (Auto) 8.4 Eos % (Auto) 0.9 Baso % (Auto) 0.4 Absolute Neuts (auto) 10.9 H Absolute Lymphs (auto) 1.45 Nucleated RBC % 0 Sodium 138 Potassium 3.6 Chloride 106 Carbon Dioxide 29.0 Anion Gap 3 L BUN 9 Creatinine 0.90 Estim Creat Clear Calc 110.20 Est GFR (MDRD) Af Amer 121 Est GFR (MDRD) Non-Af 100 BUN/Creatinine Ratio 10.0 Glucose 138 H Calcium 8.6 Management Discussion w/another healthcare provider: Rag Baler (urology Dr. Stallworth) Discharge Plan Triage Chief Complaint: Flank Pain ED Provider: Dario Hernandez Dx/Rx/DC Orders Clinical Impression: Ureteral colic, Intractable abdominal pain, Ureterolithiasis Prescriptions: No Action ciprofloxacin HCl [Cipro] 500 mg tablet 500 mg PO BID Qty: 14 0RF phenazopyridine [Pyridium] 100 mg tablet 100 mg PO TID Qty: 15 0RF tamsulosin [Flomax] 0.4 mg capsule 0.4 mg PO QHS Qty: 10 0RF oxycodone 5 mg tablet 5 mg PO Q6H PRN (Reason: pain) 7 Days Qty: 14 0RF Primary Care Provider: Care Physician,No Primary Referrals: Care Physician,No Primary [Primary Care Provider] -
[2023-08-18] MEDS: HYDROmorphone 1 MG/ML Syringe 2 MG IV (07:54)
[2023-08-18] MEDS: Ondansetron 4 MG/2 ML Vial IV (07:54)
[2023-08-18 07:58] LABS: Absolute Lymphocyte Count 1.45 X10^3/uL (0.83-4.51); Absolute Neutrophil Count 10.9 X10^3/uL (2.0-7.7); Basophil# 0.05 X10^3/uL; Basophil% 0.4 % (0-1); Eosinophil# 0.12 X10^3/uL; Eosinophils% 0.9 % (0-5); Hematocrit 40.5 % (40-54); Hemoglobin 13.6 g/dL (13.0-16.5); Lymphocyte # 1.45 X10^3/ul (0.83-4.51); Lymphocyte % 10.5 % (19-41); Mean Corp Hgb Conc 33.6 g/dL (32-36); Mean Corpuscular Hgb 31.6 pg (27.0-32.0); Mean Platelet Vol. 9.7 fl (6.2-12.0); Monocyte# 1.15 X10^3/uL; Monocyte% 8.4 % (0-10); NRBC Flagged by Analyzer 0 % (0-5); Neutrophil # 10.93 X10^3/uL (2.7-7.7); Neutrophil % 79.4 % (47-70); Platelet Count 268 K/mm3 (150-450); RBC Distribution Width CV 12.7 % (11.6-14.6); RBC Distribution Width SD 44.1 fl (35.1-43.9); Red Blood Count 4.31 M/mm3 (4.6-6.2); White Blood Count 13.8 K/mm3 (4.4-11.0)
[2023-08-18] MEDS: Ceftriaxone 1 GM/50 ML BAG IV (08:10)
[2023-08-18 08:15] LABS: Anion Gap 3 (5-15); BUN 9 mg/dL (7-18); Calcium,Total 8.6 mg/dL (8.5-10.1); Chloride 106 mmol/L (98-107); EST Glomerular Filtration Rate 100 mL/min (>60); Est Glom Filt Rate - Afr Amer 121 mL/min (>60); Glucose 138 mg/dL (74-106); Potassium 3.6 mmol/L (3.5-5.1); Sodium Level 138 mmol/L (136-145)
--- NOTE | 2023-08-18 08:36 | RAD_ITS ---
INDICATION: R ureteral stent placement; R flank pain EXAMINATION/TECHNIQUE: X-RAY - XR Abdomen 1 View COMPARISON: Prior study dated: 08/17/2023. FINDINGS: BOWEL GAS PATTERN: No specific gaseous bowel loops and colon. The gas pattern is nonobstructive. FREE AIR: Not assessed on a single supine view. ORGANOMEGALY: Not seen. CALCIFICATIONS: No abnormal calcifications observed. LOWER CHEST: No acute pathology. BONES AND SOFT TISSUES: Right-sided double-J stent catheter with the proximal tip in the region of the right kidney and the distal tip in the region of the bladder. No demonstrated acute osseous changes. RAD/Abdomen Single View (Portable) IMPRESSION: Status post right double-J stent catheter placement. Electronically Signed: Gael Gavin MD at 10:42 EST ,
--- NOTE | 2023-08-18 08:46 | PCM.HP.STD ---
HPI - General General Date of Admission: 08/18/23 Chief Complaint: Pain after stone procedure HPI Narrative LUCY CLAY, is a 37 M presented with severe pain with a proximal right ureteral calculus yesterday took him to surgery did ureteroscopy laser lithotripsy of stone and stent placement Stone was completely lasered and stent was placed he was somewhat painful in the evening but was then was given Toradol and some Dilaudid pain resolved and went home but now comes back to the ER in severe pain again so we will admit him for pain control. Checked a KUB and the stent appears to be in good position coiled up in the upper pole and also coil in the bladder. Will admit the patient for pain control if pain continues may repeat CAT scan hopefully with hydration and pain medications the pain will settle down I think it is some stent discomfort. [facility] Medical History Arthritis Hx of compression fracture of spine Hx of fracture of pelvis Impingement syndrome of right shoulder Internal derangement of right shoulder Right shoulder strain Shoulder pain Strain of right rotator cuff capsule Tendon injury Home Medications ciprofloxacin HCl 500 mg tablet (Cipro) 500 mg PO BID #14 tabs 08/17/23 [Rx Last Taken Unknown] oxycodone 5 mg tablet 5 mg PO Q6H PRN pain 7 days #14 tabs 08/17/23 [Rx Last Taken Unknown] phenazopyridine 100 mg tablet (Pyridium) 100 mg PO TID #15 tabs 08/17/23 [Rx Last Taken Unknown] tamsulosin 0.4 mg capsule (Flomax) 0.4 mg PO QHS #10 caps 08/17/23 [Rx Last Taken Unknown] Allergy/AdvReac Type Severity Reaction Status Date / Time No Known Allergies Allergy Verified 08/18/23 07:44 Social History Smoking Status: Current every day smoker tobacco type: cigarettes alcohol intake: current Alcohol type: beer Vital Signs Vital Signs Vital Signs: 08/18/23 07:42 Temperature 97.9 F Temperature Source Temporal Pulse Rate 96 Respiratory Rate 20 H Blood Pressure 183/128 H Blood Pressure Mean 146 Pulse Ox 100 Oxygen Delivery Method Room Air Weight Weight: 88.133 kg Body Mass Index (BMI) 28.7 Results Lab / Micro Data 08/18/23 07:45 08/18/23 07:45 Labs: Laboratory Results - last 24 hr 08/18/23 07:45: WBC 13.8 H, RBC 4.31 L, Hgb 13.6, Hct 40.5, MCV 94.0, MCH 31.6, MCHC 33.6, RDW Std Deviation 44.1 H, RDW Coeff of Rani 12.7, Plt Count 268, MPV 9.7, Immature Gran % (Auto) 0.400, Neut % (Auto) 79.4 H, Lymph % (Auto) 10.5 L, [place] % (Auto) 8.4, Eos % (Auto) 0.9, Baso % (Auto) 0.4, Absolute Neuts (auto) 10.9 H, Absolute Lymphs (auto) 1.45, Nucleated RBC % 0, Sodium 138, Potassium 3.6, Chloride 106, Carbon Dioxide 29.0, Anion Gap 3 L, BUN 9, Creatinine 0.90, Estim Creat Clear Calc 110.20, Est GFR (MDRD) Af Amer 121, Est GFR (MDRD) Non-Af 100, BUN/Creatinine Ratio 10.0, Glucose 138 H, Calcium 8.6
--- NOTE | 2023-08-18 08:57 | NURSING ---
MED SURG PAMELA INTRACTABLE PAIN, KID STONE WITH INFECTION
[2023-08-18 09:03] VITALS: BP 143/110; PULSE 89; RESP 16; TEMP 36.8; O2SAT 94
[2023-08-18 09:48] LABS: Hematocrit 38.9 % (40-54); Hemoglobin 13.1 g/dL (13.0-16.5); Mean Corp Hgb Conc 33.7 g/dL (32-36); Mean Corpuscular Hgb 31.7 pg (27.0-32.0); Mean Corpuscular Volume 94.2 fL (80-94); Mean Platelet Vol. 9.6 fl (6.2-12.0); Platelet Count 245 K/mm3 (150-450); RBC Distribution Width CV 12.9 % (11.6-14.6); RBC Distribution Width SD 44.7 fl (35.1-43.9); Red Blood Count 4.13 M/mm3 (4.6-6.2); White Blood Count 12.2 K/mm3 (4.4-11.0)
[2023-08-18 10:11] VITALS: BP 153/109; PULSE 80; RESP 16; TEMP 36.6; O2SAT 100; BMI 28.8
[2023-08-18] MEDS: Ciprofloxacin 500 MG Tablet PO ×2 (10:44→21:30)
[2023-08-18] MEDS: 0.9% Saline Lock 10 ML Syringe IV ×6 (10:44→23:49)
[2023-08-18] MEDS: Enoxaparin 40 MG/0.4 ML Syringe SC (10:46)
[2023-08-18] MEDS: Lactated Ringers 1,000 ML 125 ML IV ×2 (10:46→19:49)
[2023-08-18] MEDS: Morphine 2 MG/ML Syringe IV ×2 (10:46→13:14)
[2023-08-18] MEDS: Phenazopyridine 95 MG Tablet PO ×2 (12:46→17:27)
[2023-08-18 14:55] VITALS: BP 157/103; PULSE 93; RESP 16; TEMP 36.7; O2SAT 97
[2023-08-18] MEDS: HYDROmorphone 1 MG/ML Syringe IV ×3 (15:01→21:30)
[2023-08-18] MEDS: Ketorolac 15 MG/ML Vial IV ×2 (17:28→23:49)
[2023-08-18 19:51] VITALS: PULSE 90
[2023-08-18] MEDS: Tamsulosin HCl 0.4 MG Capsule PO (21:30)
[2023-08-19 03:13] VITALS: BP 151/100; PULSE 84; RESP 16; TEMP 36.7; O2SAT 100
[2023-08-19] MEDS: HYDROmorphone 1 MG/ML Syringe IV (03:18)
[2023-08-19] MEDS: Lactated Ringers 1,000 ML 125 ML IV (03:18)
[2023-08-19 05:51] LABS: Hematocrit 38.7 % (40-54); Mean Corp Hgb Conc 33.6 g/dL (32-36); Mean Corpuscular Hgb 31.2 pg (27.0-32.0); Mean Corpuscular Volume 92.8 fL (80-94); Mean Platelet Vol. 9.9 fl (6.2-12.0); Platelet Count 246 K/mm3 (150-450); RBC Distribution Width CV 12.8 % (11.6-14.6); RBC Distribution Width SD 43.4 fl (35.1-43.9); Red Blood Count 4.17 M/mm3 (4.6-6.2); White Blood Count 8.4 K/mm3 (4.4-11.0)
[2023-08-19 06:16] LABS: Anion Gap 5 (5-15); BUN 7 mg/dL (7-18); BUN/Creat Ratio 9.7 RATIO (10-20); Calcium,Total 7.9 mg/dL (8.5-10.1); Chloride 108 mmol/L (98-107); Creatinine, Serum 0.72 mg/dL (0.70-1.30); EST Glomerular Filtration Rate 129 mL/min (>60); Est Glom Filt Rate - Afr Amer 156 mL/min (>60); Estimated Creatinine Clearance 137.74 ml/min; Glucose 120 mg/dL (74-106); Potassium 3.4 mmol/L (3.5-5.1); Sodium Level 141 mmol/L (136-145)
[2023-08-19] MEDS: Ketorolac 15 MG/ML Vial IV (06:37)
[2023-08-19 07:33] VITALS: BP 146/103; PULSE 79; RESP 16; TEMP 36.4; O2SAT 98
[2023-08-19] MEDS: Phenazopyridine 95 MG Tablet PO (07:47)
--- NOTE | 2023-08-19 09:21 | PCM.DC.SUM ---
Providers Date of Admission: 08/18/23 Date of Discharge: 08/19/23 Primary Care Physician: No Primary Care Phys Reason For Visit: STONE AND PAIN Medications at Discharge Home Medications ciprofloxacin HCl 500 mg tablet (Cipro) 500 mg PO BID #14 tabs 08/17/23 oxycodone 5 mg tablet 5 mg PO Q6H PRN pain 7 days #14 tabs 08/17/23 phenazopyridine 100 mg tablet (Pyridium) 100 mg PO TID #15 tabs 08/17/23 tamsulosin 0.4 mg capsule (Flomax) 0.4 mg PO QHS #10 caps 08/17/23 Hospital Course Summary of Care Provided Minutes Spent on Discharge: 10 Hospital Course: Patient was readmitted for severe pain and spasms was kept on fluids and IV Toradol finally has cleared up and is feeling much better we will discharge him home today Physical Exam Const alert and oriented x3 General Appearance: cooperative HEENT normocephalic, head/scalp atraumatic, EAC's normal and TM's normal bilaterally Eyes PERRL and EOMs intact bilaterally Pupil: sluggish Neck no lymphadenopathy, supple and no JVD General: trachea midline Lymph Lymphatic: no lymphadenopathy noted, lymphedema and lymphadenopathy Resp normal respiratory effort, normal air movement and clear to auscultation bilaterally Cardio regular rate, regular rhythm and peripheral pulses 2+ throughout GI soft to palpation, non-tender and non-distended Extremity normal capillary refill and no clubbing, cyanosis or edema General Extremity: no tenderness to palpation of joints or extremities Skin no rashes or lesions noted General Skin Exam: turgor normal Lesions: no lesions Rashes: no rashes Neuro CN's II-XII intact bilaterally Speech: speech normal Motor Exam: strength 5/5 throughout; Negative for general weakness Psych thought process normal, cooperative and affect normal Appearance: appropriate Medical Records Data Attestation: I reviewed the patient's medical records Weight / BMI Weight Weight: 88.13 kg Body Mass Index (BMI) 28.8 ABG / Lab / Microbiology Data 08/19/23 05:35 08/19/23 05:35 Laboratory: Laboratory Results - last 24 hr 08/18/23 09:32: WBC 12.2 H, RBC 4.13 L, Hgb 13.1, Hct 38.9 L, MCV 94.2 H, MCH 31.7, MCHC 33.7, RDW Std Deviation 44.7 H, RDW Coeff of Rani 12.9, Plt Count 245, MPV 9.6 08/19/23 05:35: WBC 8.4, RBC 4.17 L, Hgb 13.0, Hct 38.7 L, MCV 92.8, MCH 31.2, MCHC 33.6, RDW Std Deviation 43.4, RDW Coeff of Rani 12.8, Plt Count 246, MPV 9.9, Sodium 141, Potassium 3.4 L, Chloride 108 H, Carbon Dioxide 28.0, Anion Gap 5, BUN 7, Creatinine 0.72, Estim Creat Clear Calc 137.74, Est GFR (MDRD) Af Amer 156, Est GFR (MDRD) Non-Af 129, BUN/Creatinine Ratio 9.7 L, Glucose 120 H, Calcium 7.9 L Radiography Diagnostic Testing: Radiology Impression KUB X-Ray 08/18/23 08:36 IMPRESSION: Status post right double-J stent catheter placement. Electronically Signed: Gael Gavin MD at 10:42 EST , D/C Instructions Discharge Diet: Light diet - advance as tolerated Discharge Activity: Return to Normal Activity Please Follow Up With: Marcell Stallworth MD Meaningful Use Info Meaningful Use Diagnoses (Choose all that apply): None applicable Discharge Plan Admission Admit Date/Time: 08/18/23 08:47 Attending Provider: Marcell Stallworth Primary Care Provider: Care Physician,Rosenda Primary Discharge Orders/Prescriptions Prescriptions: No Action ciprofloxacin HCl [Cipro] 500 mg tablet 500 mg PO BID Qty: 14 0RF phenazopyridine [Pyridium] 100 mg tablet 100 mg PO TID Qty: 15 0RF tamsulosin [Flomax] 0.4 mg capsule 0.4 mg PO QHS Qty: 10 0RF oxycodone 5 mg tablet 5 mg PO Q6H PRN (Reason: pain) 7 Days Qty: 14 0RF Referrals / Follow Up: Care Physician,No Primary [Primary Care Provider] -
[2023-08-19] MEDS: Ciprofloxacin 500 MG Tablet PO (09:32)
== END 2023-08-19 09:59 | disposition home or self-care (01) ==
LOC: ED 08:22 → MS3 08:49
PROVIDERS: Admitting Provider Urology; Emergency Provider Emergency Medicine; Visit Provider Urology
DX: G89.18 Other acute postprocedural pain (principal); R10.11 Right upper quadrant pain; N13.6 Pyonephrosis; F17.210 Nicotine dependence, cigarettes, uncomplicated
CPT/HCPCS: 36415; 74018; 80048; 85025; 85027; 94668; 96361; 96374; 96375; 96376; 99221; 99284; J7050; J7120; A4216; G0378; J2405

== ENCOUNTER 2023-08-23 10:07 | Emergency (ER) | payer BC, SELFPAY ==
[2023-08-23 10:08] VITALS: BP 173/115; PULSE 89; RESP 20; TEMP 35.7; O2SAT 99
--- NOTE | 2023-08-23 10:41 | CT_ITS ---
STUDY: CT ABDOMEN AND PELVIS WITHOUT CONTRAST REASON FOR EXAM: Male, 37 years old. Kidney Stone. Recent lithotripsy and stent placement. No urination. RADIATION DOSAGE (If Supplied By Facility): CTDIvol = ( 11.62 ) mGy, DLP = ( 615.33 ) mGycm TECHNIQUE: Transaxial images were obtained from the dome of the diaphragm to the symphysis pubis without oral contrast, and without intravenous contrast. Sagittal and coronal images were reconstructed. Individualized dose optimization techniques were used for this CT. COMPARISON: Comparison is made with prior study August 16, 2023. FINDINGS: The visualized lung bases are unremarkable. The visualized portions of the heart are within normal limits. Normal liver. Normal gallbladder and extrahepatic biliary system. Normal spleen. Normal pancreas. Normal bilateral adrenal glands. Mild degree of right hydronephrosis and right hydroureter down to the level of the ureterovesical junction. Mild degree of right perinephric stranding. The previously seen right mid ureteral calculus is now seen at the right ureterovesical junction. Normal left kidney. There is a small hiatal hernia. Normal small intestine. Normal colon. The appendix is visualized and appears normal. Normal abdominal aorta. Normal inferior vena cava. Normal retroperitoneum. Normal urinary bladder. Calcified phleboliths are seen in the right hemipelvis. Normal abdominal wall. Normal osseous structures. CT/Abdomen/Pelvis without Cont IMPRESSION: 2.9 mm calculus at the right ureterovesical junction with right perinephric stranding and mild right hydronephrosis and hydroureter. Electronically Signed: Fredy Bernabe MD at 11:39 EST ,
[2023-08-23] MEDS: 0.9% Normal Saline (1000mL) 1,000 ML 250 ML IV (10:45)
[2023-08-23] MEDS: Ketorolac 15 MG/ML Vial IV (10:46)
[2023-08-23] MEDS: HYDROmorphone 0.5 MG/0.5 ML SYRINGE IV (10:46)
[2023-08-23] MEDS: Ondansetron 4 MG/2 ML Vial IV (10:48)
[2023-08-23 10:51] LABS: Absolute Lymphocyte Count 1.84 X10^3/uL (0.83-4.51); Absolute Neutrophil Count 7.4 X10^3/uL (2.0-7.7); Basophil# 0.09 X10^3/uL; Basophil% 0.8 % (0-1); Eosinophil# 0.54 X10^3/uL; Hemoglobin 14.2 g/dL (13.0-16.5); Lymphocyte # 1.84 X10^3/ul (0.83-4.51); Lymphocyte % 17.1 % (19-41); Mean Corp Hgb Conc 33.8 g/dL (32-36); Mean Corpuscular Hgb 31.3 pg (27.0-32.0); Mean Corpuscular Volume 92.5 fL (80-94); Mean Platelet Vol. 9.3 fl (6.2-12.0); Monocyte# 0.89 X10^3/uL; Monocyte% 8.3 % (0-10); NRBC Flagged by Analyzer 0 % (0-5); Neutrophil # 7.35 X10^3/uL (2.7-7.7); Neutrophil % 68.2 % (47-70); Platelet Count 416 K/mm3 (150-450); RBC Distribution Width CV 12.6 % (11.6-14.6); Red Blood Count 4.54 M/mm3 (4.6-6.2); White Blood Count 10.8 K/mm3 (4.4-11.0)
[2023-08-23 11:02] LABS: Anion Gap 5 (5-15); BUN 11 mg/dL (7-18); BUN/Creat Ratio 9.7 RATIO (10-20); Calcium,Total 9.7 mg/dL (8.5-10.1); Chloride 103 mmol/L (98-107); Creatinine, Serum 1.13 mg/dL (0.70-1.30); EST Glomerular Filtration Rate 76 mL/min (>60); Est Glom Filt Rate - Afr Amer 92 mL/min (>60); Glucose 127 mg/dL (74-106); Potassium 4.5 mmol/L (3.5-5.1); Sodium Level 140 mmol/L (136-145)
--- NOTE | 2023-08-23 11:05 | EX.ED.DYSGE1 ---
HPI History of Present Illness Chief Complaint: Flank Pain Informant: patient Narrative Narrative: Patient is a 37-year-old male presenting for worsening right flank pain. Patient had a stent removed from the right side with Dr. Stallworth earlier today. Approximately 30 to 45 minutes after removal (he left the office at this point) he started having pretty severe pain in his right flank that radiates to his back. Denies any associated nausea or vomiting. Denies any urinary symptoms. Is currently on ciprofloxacin per Dr. Stallworth. Had lithotripsy with stent placement on 08/17. No other complaints at this time. [facility] Medical History Arthritis Hx of compression fracture of spine Hx of fracture of pelvis Impingement syndrome of right shoulder Internal derangement of right shoulder Right shoulder strain Shoulder pain Strain of right rotator cuff capsule Tendon injury Home Medications ciprofloxacin HCl 500 mg tablet (Cipro) 500 mg PO BID #14 tabs 08/17/23 [Rx Last Taken Unknown] oxycodone 5 mg tablet 5 mg PO Q6H PRN pain 7 days #14 tabs 08/17/23 [Rx Last Taken Unknown] phenazopyridine 100 mg tablet (Pyridium) 100 mg PO TID #15 tabs 08/17/23 [Rx Last Taken Unknown] tamsulosin 0.4 mg capsule (Flomax) 0.4 mg PO QHS #10 caps 08/17/23 [Rx Last Taken Unknown] oxycodone 5 mg tablet 5 mg PO Q6H PRN pain 7 days #14 tabs 08/21/23 [Rx Last Taken Unknown] ketorolac 10 mg tablet 10 mg PO Q8H PRN pain 3 days #10 tabs 08/23/23 [Rx Last Taken Unknown] oxycodone-acetaminophen 5 mg-325 mg tablet (Percocet) 1 tab PO Q6H PRN pain 3 days #12 tabs 08/23/23 [Rx Last Taken Unknown] Allergy/AdvReac Type Severity Reaction Status Date / Time No Known Allergies Allergy Verified 08/23/23 10:08 Social History Smoking Status: Current every day smoker tobacco type: cigarettes alcohol intake: current Alcohol type: beer ROS ROS ED Constitutional Constitutional ED: Denies chills or fever(s) Cardiovascular Cardiovascular: Denies chest pain Respiratory/Chest Respiratory/Chest: Denies cough Gastrointestinal Gastrointestinal: Reports abdominal pain; Denies constipation, diarrhea, nausea or vomiting Genitourinary Genitourinary ED: Denies dysuria, hematuria or urinary frequency Musculoskeletal Musculoskeletal: Reports back pain; Denies arthralgias Integumentary Denies rash Neurologic Neurologic: Denies headache(s) EXAM Physical Exam Const Vital Signs: 08/23/23 10:08 08/23/23 12:34 Temperature 96.3 F L Temperature Source Temporal Pulse Rate 89 96 Respiratory Rate 20 H 16 Blood Pressure 173/115 H 171/89 H Blood Pressure Mean 134 116 Pulse Ox 99 96 Oxygen Delivery Method Room Air Room Air Positive well nourished and well developed Constitutional Narrative: Patient in acute distress secondary to pain, uncomfortable appearing General Appearance ED: well developed HEENT Reports moist mucous membranes Eyes PERRL and EOMs intact bilaterally Neck supple and no JVD Chest Wall inspection of chest normal and palpation of chest normal Resp normal respiratory effort and clear to auscultation bilaterally Cardio regular rate and regular rhythm GI normal to inspection, nondistended, normoactive bowel sounds and non-tender Extremity normal to inspection General Extremety ED: Negative for edema General Extremity: Negative for edema Neuro oriented x3 Sensorium / Orientation: alert Psych mental status grossly normal Skin no rashes or lesions noted and no wounds MDM MDM MDM Narrative Medical decision making narrative: Patient valuated for acute onset of right flank pain in the setting of recently removed ureteral stent. Differential includes obstructing kidney stone, hydronephrosis as well as ureteral spasm associated with the stent removal. Is medicated with IV Dilaudid, Zofran and IV fluids as well as IV Toradol. Will obtain CT flank study for further evaluation of the kidneys to see if there is an acute obstructing stone and work on pain control. CBC and CMP unremarkable at this time. Urinalysis showed blood but is not consistent with infection as there is only 0-5 white blood cells, negative nitrates and rare bacteria. In addition he is on antibiotics. Do not think cultures indicated at this time. CT shows a 2.9 mm calculus at the right UVJ with right perinephric stranding and right hydronephrosis/hydroureter that is mild. This is highly consistent with his presentation. Case is discussed with urology who sees the patient in the ER. Patient now has good pain control after receiving additional 1 mg of IV Dilaudid and is feeling much better. Will be discharged home with a short course of oral Toradol as well as Percocet. Question if the stone is actually already passed at this point. Urology feels that the stone should pass spontaneously given its small size. Patient agreeable this plan of care. Discharged home in stable improved condition. Well patient does have an active prescription for oxycodone he is almost run out. Given verifiable active obstructing kidney stone I think it is reasonable for a new prescription. His urologist is aware and agreeable. Lab Data Attestation: I reviewed the patient's lab results. Labs: Laboratory Results - last 24 hr 08/23/23 08/23/23 10:40 12:35 WBC 10.8 RBC 4.54 L Hgb 14.2 Hct 42.0 MCV 92.5 MCH 31.3 MCHC 33.8 RDW Std Deviation 43.0 RDW Coeff of Rani 12.6 Plt Count 416 MPV 9.3 Immature Gran % (Auto) 0.600 Neut % (Auto) 68.2 Lymph % (Auto) 17.1 L [place] % (Auto) 8.3 Eos % (Auto) 5.0 Baso % (Auto) 0.8 Absolute Neuts (auto) 7.4 Absolute Lymphs (auto) 1.84 Nucleated RBC % 0 Sodium 140 Potassium 4.5 Chloride 103 Carbon Dioxide 32.0 Anion Gap 5 BUN 11 Creatinine 1.13 Est GFR (MDRD) Af Amer 92 Est GFR (MDRD) Non-Af 76 BUN/Creatinine Ratio 9.7 L Glucose 127 H Calcium 9.7 Urine Color Yellow Urine Clarity Cloudy Urine pH 8.0 Ur Specific [place] 1.010 Urine Protein 30 H Urine Glucose (UA) Normal Urine Ketones Negative Urine Occult Blood 250 H Urine Nitrite Negative Urine Bilirubin Negative Urine Urobilinogen Normal Ur Leukocyte Esterase 100 H Urine RBC 50-100 SEEN Urine WBC 0-5 SEEN Ur Squamous Epith Cells 0-5 SEEN Urine Bacteria RARE Urine Mucus 0 SEEN Radiography Diagnostic Testing: Clinical Impression(s) from Imaging Studies Abdomen/Pelvis CT 08/23/23 10:41 IMPRESSION: 2.9 mm calculus at the right ureterovesical junction with right perinephric stranding and mild right hydronephrosis and hydroureter. Electronically Signed: Fredy Bernabe MD at 11:39 EST , Management Discussion w/another healthcare provider: Client Resolution Specialist (Dr. Stallworth, urology ) Discharge Plan Triage Chief Complaint: Flank Pain ED Provider: Ariana Moreira Dx/Rx/DC Orders Clinical Impression: Ureteral colic, Ureterolithiasis Instructions: ED Kidney Stone with Pain Prescriptions: New ketorolac 10 mg tablet 10 mg PO Q8H PRN (Reason: pain) 3 Days Qty: 10 0RF oxycodone-acetaminophen [Percocet] 5-325 mg tablet 1 tab PO Q6H PRN (Reason: pain) 3 Days Qty: 12 0RF No Action ciprofloxacin HCl [Cipro] 500 mg tablet 500 mg PO BID Qty: 14 0RF phenazopyridine [Pyridium] 100 mg tablet 100 mg PO TID Qty: 15 0RF tamsulosin [Flomax] 0.4 mg capsule 0.4 mg PO QHS Qty: 10 0RF oxycodone 5 mg tablet 5 mg PO Q6H PRN (Reason: pain) 7 Days Qty: 14 0RF oxycodone 5 mg tablet 5 mg PO Q6H PRN (Reason: pain) 7 Days Qty: 14 0RF Primary Care Provider: Care Physician,No Primary Referrals: Marcell Stallworth MD [Med Staff - Active Staff] - 3-5 Days Care Physician,No Primary [Primary Care Provider] - Disposition Disposition: Home, Self Care
[2023-08-23] MEDS: HYDROmorphone 1 MG/ML Syringe IV (11:21)
[2023-08-23 12:34] VITALS: BP 171/89; PULSE 96; RESP 16; O2SAT 96
[2023-08-23 12:41] LABS: Mucous, Urine 0 SEEN /hpf (<or=2+)
[2023-08-23 12:43] LABS: Color, Urine Yellow (Yellow); Glucose, Dipstick Normal (Normal); Ketone-Dipstick Negative (Negative); Leukocyte Esterase-Dipstick 100 /ul (Negative); Nitrite-Dipstick Negative (Negative); Occult Blood-Urine 250 /ul (Negative); Protein-Dipstick 30 mg/dl (Negative); Urine Bilirubin Dipstick Negative (Negative); Urine Clarity Cloudy (Clear); Urine Urobilinogen Normal (Normal)
[2023-08-23 12:53] LABS: Bacteria RARE /hpf (None Seen); Red Blood Cells-Urine 50-100 SEEN /hpf (0-5); Squamous Epithelial Cells - UA 0-5 SEEN /hpf (0-5); White Blood Cells 0-5 SEEN /hpf (0-5)
== END 2023-08-23 13:24 | disposition home or self-care (01) ==
PROVIDERS: Emergency Provider Emergency Medicine; Visit Provider Emergency Medicine
DX: N13.2 Hydronephrosis with renal and ureteral calculous obstruction (principal); F17.210 Nicotine dependence, cigarettes, uncomplicated; N13.4 Hydroureter; N23 Unspecified renal colic
CPT/HCPCS: 74176; 80048; 81001; 85025; 96361; 96374; 96375; 96376; 99283; J7030; A4216; J2405

== ENCOUNTER 2025-03-27 12:36 | Emergency (ER) | payer OTHER, SELFPAY ==
[2025-03-27 12:36] VITALS: BP 141/107; PULSE 95; RESP 18; TEMP 36.8; O2SAT 99; BMI 31.6
--- NOTE | 2025-03-27 13:15 | RAD_ITS ---
PROCEDURE: CLAVICLE 03/27/2025 REASON FOR EXAM: INJURY TECHNIQUE: CLAVICLE COMPARISON: None FINDINGS: RIGHT CLAVICLE: Bones right: No fracture Joints right: Intact Soft tissues right: Unremarkable RAD/Clavicle IMPRESSION: No acute abnormality Reading Location: [id number]
--- NOTE | 2025-03-27 13:15 | RAD_ITS ---
PROCEDURE: SHOULDER MIN 2 VIEWS 03/27/2025 REASON FOR EXAM: INJURY TECHNIQUE: SHOULDER MIN 2 VIEWS COMPARISON: December 30, 2021 FINDINGS: Bones: No fracture Joints: Normal alignment of the acromioclavicular and glenohumeral joints. Soft tissues: Soft tissues are unremarkable. RAD/Shoulder min 2 Views IMPRESSION: No acute abnormality Reading Location: [id number]
[2025-03-27 14:49] VITALS: BP 167/119; PULSE 86; RESP 16; O2SAT 99
[2025-03-27] MEDS: Orphenadrine 60 MG/2 ML Ampul 30 MG IM (14:57)
[2025-03-27] MEDS: HYDROcodone Bitartrate/Apap 5/325 Tablet PO (14:57)
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
--- NOTE | 2025-03-27 15:14 | RAD_ITS ---
PROCEDURE: RIBS UNIL 2V NO CXR 03/27/2025 REASON FOR EXAM: PAIN, FALL TECHNIQUE: RIBS UNIL 2V NO CXR COMPARISON: 02/25/2025. FINDINGS: No evidence of acute fracture or dislocation. The lungs are clear. RAD/Ribs Unil 2V No CXR IMPRESSION: No rib fracture. Reading Location: [id number]
--- NOTE | 2025-03-27 15:14 | RAD_ITS ---
PROCEDURE: CHEST PA AND LATERAL 03/27/2025 REASON FOR EXAM: RIGHT RIB PAIN TECHNIQUE: CHEST PA AND LATERAL COMPARISON: None. FINDINGS: The heart is normal in size. The lungs are clear. No acute osseous abnormalities. RAD/Chest PA and Lateral IMPRESSION: NO ACUTE FINDINGS. Reading Location: [id number]
[2025-03-27 15:58] VITALS: BP 144/113; PULSE 76; RESP 16; TEMP 36.7; O2SAT 98
== END 2025-03-27 16:08 | disposition home or self-care (01) ==
PROVIDERS: Emergency Provider Emergency Medicine; Visit Provider Emergency Medicine
DX: M25.511 Pain in right shoulder (principal); F17.210 Nicotine dependence, cigarettes, uncomplicated; R07.81 Pleurodynia; W19.XXXA Unspecified fall, initial encounter
CPT/HCPCS: 71046; 71100; 73000; 73030; 99284